=== PATIENT | male | born 1960 | race Caucasian/White ===

== ENCOUNTER 2016-08-20 10:27 | Inpatient (IN) | payer OTHER ==
[~2016-08-20] VITALS: Ht 167.6 cm; Wt 68.0 kg
[2016-08-20] VITALS (17 sets, daily range): BP systolic 101–158; BP diastolic 67–119
--- NOTE | ~2016-08-20 | HC ---
[facility] [place] [address] CONSULTATION Name: XUFRIDA Veronica Room #: 245-P [facility] IN ..#: [id number] Admission: 08/20/16 Attend Phys: Dion Jarquin MD Discharge: Date of : 58 Report #: [id number] THIS REPORT FOR: //name// CC: Geovany Jarquin REASON FOR CONSULTATION: I was asked to evaluate concerning pneumonia and sepsis. HISTORY OF PRESENT ILLNESS: The patient is a 55-year-old who presented to the emergency room today with chest pain, cough, and yellow sputum production for several days. He does have a known history of COPD, lung cancer involving the right lung with diffuse metastasis in his lungs as well as his brain. He has been undergoing radiation and chemotherapy. His right chest Port-A-Cath has been removed. He states because of malfunction. He did have an episode of hemoptysis. Denies any fever or chills. There have been no GI or complaints. Most notably, today he developed chest pain associated with his shortness of breath. ALLERGIES: None known. MEDICATIONS: Albuterol. radiation and chemo is unclear to me at this time. PAST MEDICAL HISTORY: Alcoholism, tobacco use, emphysema, asthma, chronic bronchitis, lung cancer, metastasis to the brain, multiple falls. FAMILY HISTORY: Noncontributory. SOCIAL HISTORY: Smoker of cigarettes, alcohol use. REVIEW OF SYSTEMS: Negative. Has been described above. PHYSICAL EXAMINATION: VITAL SIGNS: Currently afebrile, hemodynamically stable. He has received 4 liters of normal saline prior to reaching the ICU. Now on 150 mL of normal saline drip. His respiratory rate is 19, pulse 113, blood pressure 108/85, MAP of 92. He is on 4 liters of oxygen per nasal cannula. GENERAL: He was alert and cooperative. SKIN: Unremarkable. LYMPH: Unremarkable. HEENT: Unremarkable. NECK: Supple. LUNGS: Expiratory rhonchi throughout. No consolidation. No rub. HEART: Tachycardic and regular. ABDOMEN: Soft, nontender, no hepatosplenomegaly or mass. EXTREMITIES: Unremarkable. [facility] [address] [place] [address] CONSULTATION Name: FRIDA MCNAIR Room #: 245-P [facility] IN [facility].#: [id number] Admission: 08/20/16 Attend Phys: Dion Jarquin MD Discharge: Date of : 58 Report #: [id number] NEUROLOGIC: Nonfocal. LABORATORY STUDIES: Sodium 137, potassium 4.0, bicarbonate 27, creatinine 0.6. ALT 23, alkaline phosphatase 124, bilirubin 0.5, hemoglobin 15.7, white count was 14,000 with 48% segs, 22% bands, platelet count 153,000. Viral respiratory panel is pending. Lactate 1.3. Chest x-ray, right lower lobe infiltrate, which is new. ABGs on 4 liters, pO2 of 110, pCO2 of 56, pH 7.25. Urine legionella and strep pneumo antigen pending. Sputum culture pending. Blood cultures pending. IMPRESSION: A 55-year-old with lung cancer, metastasis to the brain with right lower lobe pneumonia. Would be concerned about both community and nosocomial organisms. Unclear chemotherapy. Definitely is not neutropenic at this time and does show significant left shift. Recommend IV antibiotic therapy, screen for methicillin resistant Staphylococcus aureus in addition to the above testing. Continue with vancomycin, Zosyn and azithromycin. Follow up chest x-ray, continue full support. <ELECTRONICALLY SIGNED> By: Cruzito Denton MD 08/21/16 1653 2340 0829 Cruzito Denton MD /nt
--- NOTE | ~2016-08-20 | HC ---
[facility] [place] [address] CONSULTATION Name: XUFRIDA L Room #: 303-P [facility] IN M..#: [id number] Admission: 08/20/16 Attend Phys: Dion Jarquin MD Discharge: 08/25/16 Date of : 58 Report #: [id number] THIS REPORT FOR: //name// CC: Geovany Jarquin PRIMARY CARE PHYSICIAN: None. REFERRAL PHYSICIAN: Dr. Obrien. REASON FOR REFERRAL: Pneumonia. HISTORY OF PRESENT ILLNESS: The patient is a 55-year-old white male presented to Emergency Room with dyspnea, chest pain, and cough for the past week. Chest x-ray revealed infiltrates. The patient is being admitted for pneumonia. The patient is known to this physician being recently hospitalized in 03/2016. He was found to have a lung cancer at that time. He is currently undergoing chemo and radiation therapy at [facility]. He has been doing fairly well until about a week ago when he started to develop cough and chest pain. Otherwise, denies any productive cough or hemoptysis. 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 His other medical problems include history of alcohol abuse, COPD/asthma, tobacco abuse, and hypertension. ALLERGIES: None to medications. MEDICATIONS ON ADMISSION: Include ProAir 2 puffs p.r.n., dexamethasone, Symbicort, lisinopril, Percocet. FAMILY HISTORY: Noncontributory. SOCIAL HISTORY: The patient has smoked about a pack a day for most of his life. He still continues to smoke episodically. He has history of alcohol abuse drinking 2 to 5 cans a beer per day. He has a significant other, has two children. Most recently, he has been homeless. REVIEW OF SYSTEMS: As mentioned above, otherwise 10-point system review is negative. PHYSICAL EXAMINATION: GENERAL: He is awake, alert, in no apparent distress. VITAL SIGNS: Temperature is 98 degrees Fahrenheit, pulse is 100, respiratory rate is 25, blood pressure is 130/90 mmHg, saturation is 99%. [facility] [address] [place] [address] CONSULTATION Name: XUFRIDA L Room #: 303-P [facility] IN ..#: [id number] Admission: 08/20/16 Attend Phys: Dion Jarquin MD Discharge: 08/25/16 Date of : 58 Report #: [id number] HEENT: Normocephalic, atraumatic. NECK: Supple, without any lymphadenopathy or thyromegaly. CHEST: Breath sounds are moderate bilaterally with mild expiratory wheezes, a few scattered crackles in the right lung field. CARDIOVASCULAR: Normal S1, S2. There are no murmurs or gallop. There is no JVD. There is no carotid bruit. Pulses are 2+/4+ bilaterally. ABDOMEN: Soft, nontender, no organomegaly or masses felt. EXTREMITIES: There is no edema, cyanosis, or clubbing. LABORATORY DATA: Chest x-ray again shows a right upper lobe infiltrates. Electrolytes unremarkable. WBC 14,000, hemoglobin 15.7, platelets are normal. Arterial blood gas pH 7.25, pCO2 of 56, pO2 of 110 on 4 liters of O2. IMPRESSION: 1. Pneumonia, in this patient with metastatic lung cancer with recent chemo and radiation therapy. Usual community-acquired pneumonia is considered, though the patient is also immunocompromised. Opportunistic and atypical infection should also be considered. 2. Acute hypoxic hypercapnic respiratory failure. 3. Severe sepsis. 4. Lung cancer with brain metastases. Currently undergoing chemo and radiation therapy at [facility]. 5. Hypertension. 6. Tobacco abuse. 7. History of alcohol abuse. Agree with broad-spectrum antibiotics to cover for nosocomial infections. DVT and GI prophylaxis will be addressed. Bronchodilators and corticosteroids will be also initiated. Thank you for this consultation. <ELECTRONICALLY SIGNED> By: Shyam Murphy MD 08/26/16 1634 1413 1805 Shyam Murphy MD /nt
--- NOTE | ~2016-08-20 | EKG ---
[address] [place] [employer] [place] [address] ELECTROCARDIOGRAM REPORT Name: FRIDA MCNAIR Room #: 303-P ADM IN M.R.#: [id number] Admission: 08/20/16 Attend Phys: Dion Jarquin MD Discharge: Date of : 58 Report #: [id number] THIS REPORT FOR: //name// [facility] ED Test Date: 2016-08-20 Test Time: 10:34:37 Pat Name: FRIDA MCNAIR Department: Room: 303 Gender: M Airplane Cleaner: Jamshid CAM : 1960 Requested By: Wolfgang Mariano Order Number: [id number] MD: Iván Leyva Measurements Intervals [place] Rate: 137 P: NE: QRS: 81 QRSD: 90 T: -88 QT: 307 QTc: 464 Interpretive Statements Sinus tachycardia Consider left ventricular hypertrophy Nonspecific T abnormalities, lateral leads Baseline wander in lead(s), multiple Compared to ECG 05/17/2016 17:17:05 No significant change was found Electronically Signed On 08-22-2016 7:59:42 LANGUAGE TRANSLATOR by Iván Leyva [email or web address] <ELECTRONICALLY SIGNED> By: Iván Leyva MD, [facility] 08/22/16 0759 1034 1034 Iván Leyva MD, [facility] /EPI
[~2016-08-20 10:27] MED LIST: ALBUTEROL2.5 MG/0.5 INH; ALBUTEROL2.5 MG/32; AUGMENTIN 875875 MG PO; BP MED; DEXAMETHASONE 44 M1 PO; FLEXERIL PO; LOTENSIN40 MG PO; NORCO 5-325 TA1 EACH PO; PRINIVIL20 MG PO; PROVENTIL HFA6.7 G1 INH; SYMBICORT160 MCG/4.; SYMBICORT160 MCG/4. INH; VENTOLIN HFA 1818 GM INH
[2016-08-20 11:07] LABS: HEMATOCRIT 47.2 % (42.0-52.0); HEMOGLOBIN 15.7 gm/dL (14.0-18.0); MCHC 33.2 % (28.0-37.0); MCV 93.2 fL (80.0-100.0); PLATELET COUNT 153 thou/uL (150-400); RBC 5.06 mil/uL (4.50-6.00); RDW 15.1 % (10.5-14.5)
[2016-08-20 11:08] LABS: MANUAL DIFF YES
[2016-08-20 11:14] LABS: ANION GAP 11 mmol/L (7-16); BUN 9 mg/dL (7-18); CALCIUM 9.5 mg/dL (8.5-10.1); CHLORIDE 99 mmol/L (98-107); CO2 27 mmol/L (21-32); CREATININE 0.6 mg/dL (0.6-1.3); GLUCOSE 102 mg/dL (70-99); SODIUM 137 mmol/L (136-145)
[2016-08-20] MEDS ORDERED: PERCOCET 10-321 EACH PO (11:18)
[2016-08-20 11:23] LABS: ALKALINE PHOSPHATASE 124 U/L (46-116); MAGNESIUM 1.8 mg/dL (1.8-2.4); SGOT 34 U/L (15-37); SGPT 23 U/L (30-65); TOTAL BILIRUBIN 0.5 mg/dL (<0.1-1.0); TOTAL PROTEIN 7.8 g/dL (6.4-8.2); TROPONIN-I < 0.04 ng/mL (<0.04-0.07)
[2016-08-20 11:34] LABS: ABSOLUTE NEUTROPHILS 9.8 thou/uL (1.4-8.2); METAMYELOCYTES 4 %; TOTAL CELL COUNT 100
[2016-08-20 17:51] LABS: ABG SAMPLE TYPE ARTERIAL; BE(vivo) -3.9 mmol/L (-2 to +3); HCO3 24.2 mmol/L (22.0-26.0); LACTATE 1.31 mmol/L (0.5-2.0); O2(CT) 21.1 mL/dL (15.0-23.0); O2Hb 95.6 % (92.0-98.0); PO2 110.4 mmHg (80.0-100.0); sO2 97.3 % (92.0-98.0); tCO2 25.9 mmol/L (24.0-30.0)
[2016-08-20 17:52] LABS: STICK SITE R.RADIAL; pH 7.253 (7.360-7.450)
[2016-08-20 19:07] LABS: ABG SAMPLE TYPE VENOUS; BE(vivo) -2.1 mmol/L (-2 to +3); HCO3 26.7 mmol/L (22.0-26.0); O2(CT) 16.4 mL/dL (15.0-23.0); O2Hb VENOUS 79.3 (65.0-85.0); PCO2 VENOUS 63.1 mmHg (41.0-51.0); tCO2 28.6 mmol/L (24.0-30.0)
[2016-08-20 19:08] LABS: ABG COMMENT VBG #1; STICK SITE LINE
[2016-08-20 20:27] LABS: ABG SAMPLE TYPE VENOUS; BE(vivo) -4.4 mmol/L (-2 to +3); HCO3 23.9 mmol/L (22.0-26.0); LACTATE 0.88 mmol/L (0.5-2.0); O2Hb VENOUS 73.3 (65.0-85.0); PCO2 VENOUS 57.5 mmHg (41.0-51.0); PO2 VENOUS 43.2 mmHg (35.0-45.0); sO2 VENOUS 69.9 % (65.0-85.0); tCO2 25.7 mmol/L (24.0-30.0)
[2016-08-20 20:28] LABS: ABG COMMENT VBG #2; STICK SITE LINE
[2016-08-20 21:23] LABS: ABG COMMENT VBG #3; ABG SAMPLE TYPE VENOUS; BE(vivo) -3.1 mmol/L (-2 to +3); HCO3 25.4 mmol/L (22.0-26.0); O2(CT) 15.7 mL/dL (15.0-23.0); O2Hb VENOUS 74.7 (65.0-85.0); PCO2 VENOUS 60.3 mmHg (41.0-51.0); PO2 VENOUS 43.5 mmHg (35.0-45.0); STICK SITE LINE; sO2 VENOUS 70.5 % (65.0-85.0); tCO2 27.3 mmol/L (24.0-30.0)
[2016-08-20 22:33] LABS: ABG COMMENT VBG #4; ABG SAMPLE TYPE VENOUS; BE(vivo) -4.6 mmol/L (-2 to +3); HCO3 24.1 mmol/L (22.0-26.0); LACTATE 0.97 mmol/L (0.5-2.0); O2(CT) 17.3 mL/dL (15.0-23.0); PCO2 VENOUS 59.8 mmHg (41.0-51.0); PO2 VENOUS 50.1 mmHg (35.0-45.0); STICK SITE LINE; sO2 VENOUS 77.4 % (65.0-85.0)
[2016-08-20 23:50] LABS: INR 1.2; PROTIME 12.4 Seconds (9.3-11.4)
[2016-08-20 23:55] LABS: FIBRINOGEN 491.7 mg/dL (210-360)
[2016-08-20 23:59] LABS: ABG SAMPLE TYPE VENOUS; BE(vivo) -4.1 mmol/L (-2 to +3); HCO3 23.5 mmol/L (22.0-26.0); LACTATE 0.85 mmol/L (0.5-2.0); O2(CT) 16.6 mL/dL (15.0-23.0); O2Hb VENOUS 84.3 (65.0-85.0); PCO2 VENOUS 53.2 mmHg (41.0-51.0); PO2 VENOUS 52.3 mmHg (35.0-45.0); sO2 VENOUS 81.6 % (65.0-85.0); tCO2 25.1 mmol/L (24.0-30.0)
[2016-08-21] VITALS (15 sets, daily range): BP systolic 106–156; BP diastolic 75–107
[2016-08-21] LABS: ABG COMMENT VBG #5; STICK SITE LINE
[2016-08-21 00:07] LABS: CALCIUM 8.6 mg/dL (8.5-10.1); CREATININE 0.6 mg/dL (0.6-1.3)
[2016-08-21 03:26] LABS: HEMATOCRIT 42.4 % (42.0-52.0); HEMOGLOBIN 13.9 gm/dL (14.0-18.0); MCH 30.8 pg (26.0-34.0); MCHC 32.8 % (28.0-37.0); RBC 4.51 mil/uL (4.50-6.00); WBC 4.4 thou/uL (4.0-11.0)
[2016-08-21 03:28] LABS: CALCIUM 8.6 mg/dL (8.5-10.1); CREATININE 0.5 mg/dL (0.6-1.3); POTASSIUM 3.9 mmol/L (3.5-5.1)
[2016-08-21 03:35] LABS: INR 1.1; PROTIME 11.9 Seconds (9.3-11.4)
[2016-08-21 03:41] LABS: FIBRINOGEN 607.8 mg/dL (210-360)
[2016-08-21 08:12] LABS: CALCIUM 8.7 mg/dL (8.5-10.1); CREATININE 0.5 mg/dL (0.6-1.3)
[2016-08-22 02:01] LABS: HEMATOCRIT 38.6 % (42.0-52.0); HEMOGLOBIN 12.4 gm/dL (14.0-18.0); MCH 30.3 pg (26.0-34.0); MCHC 32.1 % (28.0-37.0); MCV 94.6 fL (80.0-100.0); RBC 4.08 mil/uL (4.50-6.00); RDW 15.1 % (10.5-14.5); WBC 4.6 thou/uL (4.0-11.0)
[2016-08-22 02:10] LABS: CALCIUM 8.6 mg/dL (8.5-10.1); CREATININE 0.6 mg/dL (0.6-1.3); POTASSIUM 3.4 mmol/L (3.5-5.1)
[2016-08-22 04:34] VITALS: BP 128/91
[2016-08-22 09:03] VITALS: BP 131/86
[2016-08-22 12:00] VITALS: BP 133/83
[2016-08-22 16:00] VITALS: BP 142/91
[2016-08-22 20:05] VITALS: BP 133/89
[2016-08-23 04:39] VITALS: BP 158/108
[2016-08-23 06:49] LABS: HEMATOCRIT 40.1 % (42.0-52.0); HEMOGLOBIN 13.3 gm/dL (14.0-18.0); MCH 30.9 pg (26.0-34.0); MCHC 33.2 % (28.0-37.0); MCV 93.2 fL (80.0-100.0); RBC 4.31 mil/uL (4.50-6.00); RDW 14.9 % (10.5-14.5); WBC 2.9 thou/uL (4.0-11.0)
[2016-08-23 06:54] LABS: CALCIUM 8.8 mg/dL (8.5-10.1); CREATININE 0.5 mg/dL (0.6-1.3); POTASSIUM 3.4 mmol/L (3.5-5.1)
[2016-08-23 08:05] VITALS: BP 166/97
[2016-08-23 12:18] VITALS: BP 151/97
[2016-08-23 16:26] VITALS: BP 146/88
[2016-08-23 20:00] VITALS: BP 161/103
[2016-08-24 03:20] VITALS: BP 163/107
[2016-08-24 07:25] VITALS: BP 162/105
[2016-08-24 08:14] LABS: INFLUENZA B Negative (Negative); METAPNEUMOVIRUS Negative (Negative)
[2016-08-24 08:22] LABS: HEMOGLOBIN 13.3 gm/dL (14.0-18.0); MCH 30.5 pg (26.0-34.0); MCHC 32.5 % (28.0-37.0); MCV 93.6 fL (80.0-100.0); RBC 4.38 mil/uL (4.50-6.00); RDW 14.8 % (10.5-14.5)
[2016-08-24 08:29] LABS: CALCIUM 8.8 mg/dL (8.5-10.1); CREATININE 0.5 mg/dL (0.6-1.3); POTASSIUM 3.3 mmol/L (3.5-5.1)
[2016-08-24 10:00] VITALS: BP 163/106
[2016-08-24 11:50] VITALS: BP 143/92
[2016-08-24 15:45] VITALS: BP 173/98
[2016-08-24 20:39] VITALS: BP 144/93
[2016-08-25 05:01] VITALS: BP 173/99
[2016-08-25 08:47] VITALS: BP 154/107
[2016-08-25 12:33] VITALS: BP 151/106
[2016-08-25] MEDS ORDERED: PREDNISONE 10 M10 MG PO (13:47)
[2016-08-25] MEDS ORDERED: NORVASC10 MG PO (13:47)
[2016-08-25] MEDS ORDERED: CEFUROXIME500 MG PO (13:47)
[2016-08-25] MEDS ORDERED: PROBIOTIC1 EAC1 PO (13:47)
[2016-08-25 13:52] VITALS: BP 151/106
== END 2016-08-25 14:08 | disposition home health service (06) | DRG 871 ==
LOC: ER 10:27 → EROBS 12:10 → 3N 12:10 → ICU 16:50 → 3N 08-21 19:52
PROVIDERS: Emergency Medicine; Hospitalist; Internal Medicine; Internal Medicine Pulmonary Disease; Nurse Practitioner
DX: A41.9 Sepsis, unspecified organism (principal); J96.01 Acute respiratory failure with hypoxia; J18.9 Pneumonia, unspecified organism; J96.02 Acute respiratory failure with hypercapnia; C34.90 Malignant neoplasm of unspecified part of unspecified bronchus or lung; C79.31 Secondary malignant neoplasm of brain; E44.0 Moderate protein-calorie malnutrition; J44.9 Chronic obstructive pulmonary disease, unspecified; R65.20 Severe sepsis without septic shock; J45.909 Unspecified asthma, uncomplicated; I10 Essential (primary) hypertension; F10.10 Alcohol abuse, uncomplicated; D72.819 Decreased white blood cell count, unspecified; F17.210 Nicotine dependence, cigarettes, uncomplicated; R73.01 Impaired fasting glucose; Z68.23 Body mass index [BMI] 23.0-23.9, adult; Z79.899 Other long term (current) drug therapy; Z79.52 Long term (current) use of systemic steroids; Z87.01 Personal history of pneumonia (recurrent)
CPT/HCPCS: 10078; 10096; 27000

== ENCOUNTER 2016-09-02 10:28 | Inpatient (IN) | payer OTHER ==
[~2016-09-02] VITALS: Ht 167.6 cm; Wt 59.2 kg
--- NOTE | ~2016-09-02 | HC ---
[facility] [place] [address] CONSULTATION Name: XUFRIDA Veronica Room #: 209-P ADM IN M.R.#: [id number] Admission: 09/02/16 Attend Phys: Baldo Key MD Discharge: Date of : 58 Report #: [id number] THIS REPORT FOR: //name// CC: Geovany Key MD DATE OF SERVICE: 09/02/2016 REFERRING PROVIDER: Baldo Key MD REASON FOR CONSULTATION: Pneumonia. CHIEF COMPLAINT: Cough and shortness of breath. HISTORY OF PRESENT ILLNESS: Our group was asked to see the patient in consultation while hospitalized at [facility], a pleasant on 55-year-old male with a history of non-small cell lung cancer with metastasis to brain, treated with radiation therapy, has also been on chemotherapy, was recently admitted 1 week ago with lower respiratory infection consistent with pneumonia, was discharged with some confusion about systemic steroids, was started on some antimicrobial therapy. The patient only had p.r.n. albuterol inhaler. He states supplemental oxygen, was seen by his oncologist this morning and was found to have persistent cough productive of white sputum and also continued to be short of breath. Temperature is 100 this morning. He is subsequently admitted for further management. CT scan of the chest, PE protocol was performed which revealed again changes to the right hilar area consistent with prior treatment. Before he had cancer, has had some peribronchial thickening consistent with his underlying obstructive lung disease with acute exacerbation. Currently, resting in bed with significant cough as mentioned. ALLERGIES: None known. PAST MEDICAL HISTORY: 1. Non-small cell lung cancer with brain metastasis status post chemotherapy and radiation therapy to both. 2. Recent hospitalized for healthcare-associated pneumonia. 3. Underlying COPD. 4. History of alcohol abuse. 5. History of steroid-related diabetes mellitus type 2. 6. History of lower extremity weakness and debilitation. OUTPATIENT MEDICATIONS: Include albuterol, amlodipine, cefuroxime, probiotic and prednisone. SOCIAL HISTORY: About a pack a day smoker, significant alcohol consumption [facility] [address] [place] [address] CONSULTATION Name: FRIDA MCNAIR Room #: 209-P [facility]#: [id number] Admission: 09/02/16 Attend Phys: Baldo Key MD Discharge: Date of : 58 Report #: [id number] noted. Lives with significant other. FAMILY HISTORY: Noncontributory. REVIEW OF SYSTEMS: Twelve point review of systems as described in the HPI is normal. PHYSICAL EXAMINATION: VITAL SIGNS: Afebrile, pulse 120 and regular, respiratory rate 24, blood pressure 103/76, oxygen saturation 97% on 2 liters. GENERAL: This is a somewhat diminutive middle-aged male, older than his stated age, no distress. HEENT: Clear oropharynx. No erythema. NECK: Supple, no lymphadenopathy. LUNGS: Diminished, prolonged expiratory phase, diffuse expiratory rhonchi heard throughout. CARDIOVASCULAR: Heart was tachycardic, but regular. No murmurs. ABDOMEN: Soft, nontender, no masses. EXTREMITIES: Warm, 2+ pulses. No significant edema. INTEGUMENT: Revealed multiple areas of ecchymosis over the upper extremities. LABORATORY DATA: Arterial blood gas done on room air revealed pH 7.41, pCO2 of 45, pO2 of 55, bicarbonate 28. White blood cell count 13,000, hemoglobin 16, hematocrit 29, platelet count 270. Sodium 134, potassium 3.8, chloride 95, bicarbonate 32, BUN 10, creatinine 1.0, glucose 132, alkaline phosphatase 150. ProBNP is 362, albumin 3.0. CT scan of the chest as described in HPI. IMPRESSION: 1. Acute exacerbation of chronic obstructive pulmonary disease. 2. Acute on chronic hypoxemic respiratory failure. 3. History of metastatic lung cancer, suspect changes on x-ray consistent with his acute exacerbation, underlying radiation changes associated with treatment. 4. General debilitation. SUGGESTIONS: 1. Continue with coverage for healthcare-associated pneumonia and failure of outpatient therapy. 2. Await sputum culture. 3. Systemic steroid taper. 4. Bronchodilators. 5. We will add guaifenesin. 6. Consider additional airway clearance including a flutter valve. 7. Mobilize, consider physical therapy to assist with mobilization. 8. Likely will need supplemental oxygen and nebulizer at discharge. 9. Additional recommendations to follow. [address] [address] CONSULTATION Name: FRIDA MCNAIR Room #: 209-P [facility] IN ..#: [id number] Admission: 09/02/16 Attend Phys: Baldo Key MD Discharge: Date of : 58 Report #: [id number] Thank you for requesting our suggestions. <ELECTRONICALLY SIGNED> By: Abdias Browne MD 09/06/16 1508 1930 0046 Abdias Browne MD /nt
--- NOTE | ~2016-09-02 | EKG ---
[address] [address] ELECTROCARDIOGRAM REPORT Name: FRIDA MCNAIR Room #: 209-P ADM IN M.R.#: [id number] Admission: 09/02/16 Attend Phys: Baldo Key MD Discharge: Date of : 58 Report #: [id number] THIS REPORT FOR: //name// [facility] ED Test Date: 2016-09-02 Test Time: 10:53:29 Pat Name: FRIDA MCNAIR Department: Room: 209 Gender: M Veterinary Medicine Doctor: MZOOK : 1960 Requested By: Aneta Maldonado Order Number: [id number] MD: Dereck Ruffin Measurements Intervals [place] Rate: 128 P: 85 VA: 137 QRS: 76 QRSD: 81 T: 29 QT: 300 QTc: 438 Interpretive Statements Sinus tachycardia LAE, consider biatrial enlargement Probable left ventricular hypertrophy Compared to ECG 08/20/2016 10:34:37 T-wave abnormality no longer present Electronically Signed On 09-02-2016 14:14:46 SENIOR TECHNICAL ARCHITECT by Dereck Ruffin [email or web address] <ELECTRONICALLY SIGNED> By: Dereck Ruffin MD 09/02/16 1414 1053 1053 Dereck Ruffin MD /BREE
--- NOTE | ~2016-09-02 | EKG ---
[address] [address] ELECTROCARDIOGRAM REPORT Name: FRIDA MCNAIR Room #: 209-P ADM IN M.R.#: [id number] Admission: 09/02/16 Attend Phys: Baldo Key MD Discharge: Date of : 58 Report #: [id number] THIS REPORT FOR: //name// [facility] Test Date: 2016-09-05 Test Time: 07:30:41 Pat Name: FRIDA MCNAIR Department: Room: 209 P Gender: M Poultry Farm Manager: lo : 1960 Requested By: Abdias Browne Order Number: [id number] MD: Iván Leyva Measurements Intervals [place] Rate: 109 P: [place]: QRS: 73 QRSD: 82 T: 51 QT: 337 QTc: 454 Interpretive Statements Sinus tachycardia Otherwise no significant abnormality No previous ECGs available for comparison Electronically Signed On 09-05-2016 8:28:17 EQUIPMENT VALIDATION ENGINEER by Iván Leyva [email or web address] <ELECTRONICALLY SIGNED> By: Iván Leyva MD, [facility] 09/05/16 0828 0730 0730 Iván Leyva MD, [facility] /EPI
[~2016-09-02 10:28] MED LIST changes: +CEFUROXIME500 MG PO; +NORVASC10 MG PO; +PERCOCET 10-321 EACH PO; +PREDNISONE 10 M10 MG PO; +PROBIOTIC1 EAC1 PO
[2016-09-02 10:29] VITALS: BP 145/70
[2016-09-02 11:01] LABS: HEMATOCRIT 49.2 % (42.0-52.0); HEMOGLOBIN 16.3 gm/dL (14.0-18.0); MCH 30.6 pg (26.0-34.0); MCV 92.6 fL (80.0-100.0); PLATELET COUNT 270 thou/uL (150-400); RBC 5.32 mil/uL (4.50-6.00)
[2016-09-02 11:04] LABS: MANUAL DIFF YES
[2016-09-02 11:04] LABS: ABG SAMPLE TYPE ARTERIAL; BE(vivo) 2.4 mmol/L (-2 to +3); HCO3 27.7 mmol/L (22.0-26.0); LACTATE 1.02 mmol/L (0.5-2.0); O2(CT) 19.7 mL/dL (15.0-23.0); O2Hb 86.5 % (92.0-98.0); PCO2 44.9 mmHg (35.0-45.0); pH 7.408 (7.360-7.450); sO2 88.6 % (92.0-98.0); tCO2 29.1 mmol/L (24.0-30.0)
[2016-09-02 11:05] LABS: PO2 54.8 mmHg (80.0-100.0)
[2016-09-02 11:06] LABS: STICK SITE R.RADIAL
[2016-09-02 11:13] LABS: APTT 28.7 Seconds (24.5-32.8); INR 1.2
[2016-09-02 11:15] LABS: ANION GAP 7 mmol/L (7-16); BUN 10 mg/dL (7-18); CALCIUM 9.1 mg/dL (8.5-10.1); CHLORIDE 95 mmol/L (98-107); CO2 32 mmol/L (21-32); GLUCOSE 132 mg/dL (70-99); POTASSIUM 3.8 mmol/L (3.5-5.1); SODIUM 134 mmol/L (136-145)
[2016-09-02 11:30] LABS: ALKALINE PHOSPHATASE 150 U/L (46-116); NT-PRO BRAIN NAT PEPTIDE 362 pg/mL (<300); SGOT 32 U/L (15-37); SGPT 44 U/L (30-65); TOTAL BILIRUBIN 0.4 mg/dL (<0.1-1.0); TOTAL PROTEIN 8.2 g/dL (6.4-8.2); TROPONIN-I < 0.04 ng/mL (<0.04-0.07)
[2016-09-02 11:47] LABS: ABSOLUTE NEUTROPHILS 11.2 thou/uL (1.4-8.2); TOTAL CELL COUNT 100
[2016-09-02 14:04] VITALS: BP 116/86
[2016-09-02 14:15] VITALS: BP 119/96
[2016-09-02 15:50] VITALS: BP 103/76
[2016-09-02 19:38] LABS: URINE BILIRUBIN NEGATIVE (Negative); URINE BLOOD NEGATIVE (Negative); URINE COLOR YELLOW; URINE GLUCOSE-RANDOM* NEGATIVE (Negative); URINE KETONES NEGATIVE (Negative); URINE NITRITE NEGATIVE (Negative); URINE PROTEIN (DIPSTICK) NEGATIVE (Negative); URINE UROBILINOGEN 0.2 E.U./dl (0.2-1.0)
[2016-09-02 20:17] VITALS: BP 131/86
[2016-09-02 23:28] VITALS: BP 120/88
[2016-09-03 04:10] VITALS: BP 120/85
[2016-09-03 16:50] VITALS: BP 135/95
[2016-09-03 20:35] VITALS: BP 134/81
[2016-09-04] VITALS (7 sets, daily range): BP systolic 124–168; BP diastolic 68–105
[2016-09-04 03:44] LABS: HEMATOCRIT 40.9 % (42.0-52.0); MCH 30.1 pg (26.0-34.0); MCHC 32.2 % (28.0-37.0); MCV 93.4 fL (80.0-100.0); PLATELET COUNT 215 thou/uL (150-400); RBC 4.38 mil/uL (4.50-6.00); RDW 15.5 % (10.5-14.5); WBC 11.1 thou/uL (4.0-11.0)
[2016-09-04 04:16] LABS: HEMOGLOBIN 13.2 gm/dL (14.0-18.0)
[2016-09-04 04:17] LABS: MANUAL DIFF YES
[2016-09-04 05:49] LABS: ABSOLUTE NEUTROPHILS 10.2 thou/uL (1.4-8.2); PLATELET ESTIMATE NORMAL; TOTAL CELL COUNT 100
[2016-09-05 00:44] VITALS: BP 163/85
[2016-09-05 03:42] LABS: ABG SAMPLE TYPE ARTERIAL; BE(vivo) 7.4 mmol/L (-2 to +3); HCO3 35.2 mmol/L (22.0-26.0); LACTATE 1.54 mmol/L (0.5-2.0); O2(CT) 20.9 mL/dL (15.0-23.0); O2Hb 95.7 % (92.0-98.0); PCO2 62.8 mmHg (35.0-45.0); PO2 84.6 mmHg (80.0-100.0); STICK SITE R.RADIAL; pH 7.367 (7.360-7.450); sO2 95.8 % (92.0-98.0); tCO2 37.2 mmol/L (24.0-30.0)
[2016-09-05 03:45] VITALS: BP 161/95
[2016-09-05 04:14] LABS: HEMATOCRIT 44.8 % (42.0-52.0); HEMOGLOBIN 14.4 gm/dL (14.0-18.0); MCH 30.1 pg (26.0-34.0); MCHC 32.2 % (28.0-37.0); MCV 93.4 fL (80.0-100.0); RBC 4.79 mil/uL (4.50-6.00); RDW 15.6 % (10.5-14.5); WBC 12.8 thou/uL (4.0-11.0)
[2016-09-05 04:21] LABS: CALCIUM 9.4 mg/dL (8.5-10.1); CREATININE 0.6 mg/dL (0.6-1.3); POTASSIUM 3.9 mmol/L (3.5-5.1)
[2016-09-05 07:50] VITALS: BP 155/108
[2016-09-05 11:20] VITALS: BP 144/103
[2016-09-05 16:40] VITALS: BP 134/99
[2016-09-05 20:21] VITALS: BP 131/94
[2016-09-06 04:06] VITALS: BP 128/89
[2016-09-06 04:17] LABS: HEMATOCRIT 42.6 % (42.0-52.0); HEMOGLOBIN 13.7 gm/dL (14.0-18.0); MCHC 32.2 % (28.0-37.0); MCV 93.2 fL (80.0-100.0); RBC 4.57 mil/uL (4.50-6.00); RDW 15.5 % (10.5-14.5); WBC 5.2 thou/uL (4.0-11.0)
[2016-09-06 04:27] LABS: CALCIUM 8.9 mg/dL (8.5-10.1); CREATININE 0.6 mg/dL (0.6-1.3); POTASSIUM 3.3 mmol/L (3.5-5.1)
[2016-09-06 08:00] VITALS: BP 156/107
[2016-09-06 12:07] VITALS: BP 128/105
[2016-09-06 16:00] VITALS: BP 139/103
[2016-09-06 16:05] VITALS: BP 113/83
[2016-09-07 04:22] VITALS: BP 134/104
[2016-09-07 08:23] VITALS: BP 149/107
[2016-09-07 13:15] VITALS: BP 130/106
[2016-09-07 17:10] VITALS: BP 118/84
[2016-09-07 19:49] VITALS: BP 125/94
[2016-09-07 22:07] LABS: INFLUENZA B Negative (Negative); METAPNEUMOVIRUS Negative (Negative)
[2016-09-08 05:08] VITALS: BP 119/89
[2016-09-08 08:00] VITALS: BP 111/80
[2016-09-08] MEDS ORDERED: MIRALAX17 GM PO (10:43)
[2016-09-08] MEDS ORDERED: NICOTINE TRANSD21 M1 TRANSDERM (10:43)
[2016-09-08] MEDS ORDERED: LEVAQUIN 500 M500 M1 PO (10:43)
[2016-09-08] MEDS ORDERED: COLACE 100 MG100 MG PO (10:43)
[2016-09-08 12:30] VITALS: BP 112/84
[2016-09-08] MEDS ORDERED: SYMBICORT160 MCG/4. INH (12:31)
[2016-09-08] MEDS ORDERED: PROVENTIL HFA6.7 G1 INH (12:31)
[2016-09-08 15:58] VITALS: BP 112/85
[2016-09-08 16:26] VITALS: BP 112/85
== END 2016-09-08 17:29 | disposition home or self-care (01) | DRG 190 ==
LOC: ER 10:28 → 2N 12:27 → EROBS 12:27 → 2N 13:57
PROVIDERS: Family Medicine; Internal Medicine Pulmonary Disease; Nurse Practitioner; Physician Assistant
PROC: 5A09357 Assistance with Respiratory Ventilation, Less than 24 Consecutive Hours, Continuous Positive Airway Pressure (ICD-10-PCS; principal; 2016-09-05)
DX: J44.0 Chronic obstructive pulmonary disease with (acute) lower respiratory infection (principal); J96.01 Acute respiratory failure with hypoxia; J18.9 Pneumonia, unspecified organism; J09.X1 Influenza due to identified novel influenza A virus with pneumonia; J18.8 Other pneumonia, unspecified organism; E44.1 Mild protein-calorie malnutrition; C34.90 Malignant neoplasm of unspecified part of unspecified bronchus or lung; C79.31 Secondary malignant neoplasm of brain; J44.1 Chronic obstructive pulmonary disease with (acute) exacerbation; F40.240 Claustrophobia; F17.210 Nicotine dependence, cigarettes, uncomplicated; Z68.22 Body mass index [BMI] 22.0-22.9, adult; Z79.2 Long term (current) use of antibiotics; Z99.81 Dependence on supplemental oxygen; Z87.01 Personal history of pneumonia (recurrent); Z79.52 Long term (current) use of systemic steroids
CPT/HCPCS: 10081

== ENCOUNTER 2016-12-30 12:46 | Inpatient (IN) | payer OTHER ==
[~2016-12-30] VITALS: Ht 167.6 cm; Wt 68.9 kg
--- NOTE | ~2016-12-30 | HC ---
[facility] [place] [place] [address] CONSULTATION Name: XUFRIDA Veronica Room #: 240-[facility] IN M.R.#: [id number] Admission: 12/30/16 Attend Phys: Gabriele Quezada DO Discharge: Date of : 58 Report #: [id number] THIS REPORT FOR: //name// CC: Geovany Jade MD DATE OF SERVICE: 12/30/2016 REFERRING PROVIDER: Dr. Bisi Pierce and Dr. Gabriele Quezada. REASON FOR CONSULTATION: Recurrent pneumonia. CHIEF COMPLAINT: Chest pain and shortness of breath. HISTORY OF PRESENT ILLNESS: Our group was asked to see the patient in consultation while hospitalized at [facility]. A pleasant but unfortunate 56-year-old male with a known history of metastatic lung cancer with brain metastases, has been on a second line therapy with Opdivo by records from [facility]. He has had recurrent problems with lower respiratory infections and underlying COPD. Initially was found to have a right hilar mass nearly one year ago and workup revealed non-small cell lung cancer. He had had radiation therapy to that area and has had some persistent abnormalities since that time, notes recently coming off antibiotic therapy with Augmentin, but in the last two weeks he has had some increasing shortness of breath, cough and some chest pain across the center of the chest. He has also noted some fever at home up to 101, no chills or rigors, appetite has been diminished, was seen for chemotherapy today, but then requested to go to the Emergency Department due to his chest pain for further evaluation. CT scan of the chest in the Emergency Department revealed no evidence of pulmonary embolism. There are some fine nodular infiltrates noted in the bases of the chest as well as a right middle lobe densely consistent with his prior radiation therapy and/or pneumonitis, not substantially changed from prior imaging. ALLERGIES: None known. PAST MEDICAL HISTORY: 1. Non small cell lung cancer, brain metastasis. 2. COPD. 3. History of recurrent pneumonia, this is likely secondary to the above. 4. History of alcohol abuse. 5. History of tobacco abuse. 6. History of steroid-related diabetes mellitus type 2. 7. History of general debilitation, lower extremity weakness and unsteady gait. 8. History of radiation therapy for his non-small cell lung cancer as well as [facility] [address] [place] [address] CONSULTATION Name: FRIDA MCNAIR Veronica Room #: 240-P [facility] IN ..#: [id number] Admission: 12/30/16 Attend Phys: Gabriele Quezada DO Discharge: Date of : 58 Report #: [id number] ongoing chemotherapy. OUTPATIENT MEDICATIONS: Include prednisone 10 mg daily, amlodipine 10 mg daily, nicotine patch, Colace, albuterol nebulizer and Symbicort. SOCIAL HISTORY: Active smoker, currently lives in a fifth wheel trailer with his significant other, was looking for other arrangements as this seems to be inadequate. FAMILY HISTORY: Negative for any significant pulmonary disease. REVIEW OF SYSTEMS: CONSTITUTIONAL: Notes fever, no chills or rigors. ENT: No upper respiratory congestion, rhinorrhea or dysphagia. CARDIOVASCULAR: Chest pain as described in HPI. No palpitations. GASTROINTESTINAL: Some nausea earlier today with some emesis. Denies any abdominal pain, diarrhea or constipation. GENITOURINARY: No dysuria, no frequency. INTEGUMENT: Denies any new rash. MUSCULOSKELETAL: Generalized weakness; some unsteady gait NEUROLOGIC: Some peripheral neuropathy symptoms. PHYSICAL EXAMINATION: VITAL SIGNS: Temperature 99.3, pulse 100 and regular, respiratory rate 18, blood pressure 132/83, oxygen saturation 100%. GENERAL: This is a thin, middle-aged male, does not appear in any distress. HEENT: Clear oropharynx. No thrush. NECK: Supple, no lymphadenopathy. LUNGS: Diffuse expiratory wheezes noted throughout diminished on the right base. CARDIOVASCULAR: Heart was regular. No murmurs noted. ABDOMEN: Soft, nontender, no masses, no hepatosplenomegaly. EXTREMITIES: Without edema. INTEGUMENT: There are multiple areas of skin abrasions over the upper and lower extremities consistent with frequent falls. LABORATORY DATA: Sodium 136, potassium 4.4, chloride 100, bicarbonate 28, BUN 24, creatinine 1.0, glucose 137. ProBNP is 318, white blood cell count 19,000, hemoglobin 11, hematocrit , platelet count 249. No arterial blood gas available. CT scan is as described in HPI. IMPRESSION: Recurrent lower respiratory infection. CT findings do suggest some basilar bronchiectasis and some nodular change. This may be consistent with bronchiectasis with acute exacerbation. Given the recurrent symptoms, may have an atypical microbacterium, would also be concerned about recurrent problems in his right middle lobe due to some possible obstruction there, other findings [facility] [address] [place] [address] CONSULTATION Name: FRIDA MCNAIR Room #: [facility]-P ADM IN M.R.#: [id number] Admission: 12/30/16 Attend Phys: Gabriele Quezada DO Discharge: Date of : 58 Report #: [id number] most consistent with radiation change. Suggest checking the sputum for AFB and routine cultures. Continue with Zosyn and antibiotics and vancomycin, systemic steroid taper, bronchodilators, add flutter valve for airway clearance, additional recommendations to follow. Would consider discontinuing inhaled steroids as this may be contributing to some of his problems with lower respiratory infections, may require bronchoscopy for further cultures if the above are negative. <ELECTRONICALLY SIGNED> By: Abdias Browne MD 01/02/17 1453 1840 0135 Abdias Browne MD /nt
--- NOTE | ~2016-12-30 | P ---
[facility] [place] [address] PROCEDURE REPORT Name: XUFRIDA Veronica Room #: 240-P [facility] IN ..#: [id number] Admission: 12/30/16 Attend Phys: Gabriele Quezada DO Discharge: Date of : 58 Report #: [id number] THIS REPORT FOR: //name// CC: Geovany Quezada DATE OF SERVICE: 12/31/2016 PROCEDURE: An EGD with injection and cautery. INDICATION: The patient is a 56-year-old male with history of metastatic lung cancer who developed acute onset of nausea and hematemesis, dropped his hemoglobin from 10.5 to 4.8 and had an episode of melena. At that time, he was also tachycardic and hypotensive and was transferred to the intensive care unit and started on PPI infusion. ANESTHESIA: Monitored anesthesia care, propofol for sedation with help of Dr. Marcos. DESCRIPTION OF PROCEDURE: The patient was placed in the left lateral decubitus position and the adult [employer] upper endoscope was introduced into the mouth, into the esophagus, into the stomach, into the second portion of the duodenum. Duodenum appeared normal. There were 2, 1 large antral stomach ulcer, 1 was small about 3 mm and linear, the other was large and cratered with a visible vessel. There was no blood noted throughout the stomach or the duodenum, but there was a visible vessel in the bed of the ulcer. This was injected with epinephrine, 3 mL and cauterized using BICAP cautery. There was no bleeding at the end of the procedure. The stomach was normal in retroflexion and the patient had normal esophagus. RECOMMENDATIONS: To continue the PPI infusion for 72 hours. Continue to monitor hemoglobin daily. Keep n.p.o. for today and if the hemoglobin remained stable without any further bleeding, the diet can be advanced at that time. Avoid NSAID medication. The patient takes significant amount of Naprosyn at home and send stool H. pylori antigen and treat if positive. We will follow along with you. <ELECTRONICALLY SIGNED> By: Dung Tarango MD 01/01/17 0908 1344 1853 Dung Tarango MD /nt
--- NOTE | ~2016-12-30 | EKG ---
[address] [place] [address] ELECTROCARDIOGRAM REPORT Name: FRIDA MCNAIR Room #: 240-P ADM IN M.R.#: [id number] Admission: 12/30/16 Attend Phys: Gabriele Quezada DO Discharge: Date of : 58 Report #: [id number] THIS REPORT FOR: //name// [facility] ED Test Date: 2016-12-30 Test Time: 13:10:15 Pat Name: FRIDA MCNAIR Department: Room: 240 Gender: M Photogrammetric Surveyor: LEILA : 1960 Requested By: Crow Meza Order Number: [id number] MD: Iván Leyva Measurements Intervals [place] Rate: 135 P: 79 MO: 67 QRS: 75 QRSD: 79 T: 228 QT: 284 QTc: 426 Interpretive Statements Sinus tachycardia Probable LVH with secondary repol abnrm Compared to ECG 09/05/2016 07:30:41 No significant changes Electronically Signed On 12-31-2016 11:28:19 CDT by Iván Leyva [email or web address] <ELECTRONICALLY SIGNED> By: Iván Leyva MD, [facility] 12/31/16 1128 1310 1310 Iván Leyva MD, [facility] /EPI
[~2016-12-30 12:46] MED LIST changes: +COLACE 100 MG100 MG PO; +LEVAQUIN 500 M500 M1 PO; +MIRALAX17 GM PO; +NICOTINE TRANSD21 M1 TRANSDERM
[2016-12-30 12:51] VITALS: BP 130/68
[2016-12-30 13:31] LABS: HEMATOCRIT 30.5 % (42.0-52.0); HEMOGLOBIN 10.5 gm/dL (14.0-18.0); MCHC 34.3 g/dL (28.0-37.0); MCV 93.4 fL (80.0-100.0); PLATELET COUNT 249 thou/uL (150-400); RBC 3.27 mil/uL (4.50-6.00); RDW 15.6 % (10.5-14.5); WBC 18.9 thou/uL (4.0-11.0)
[2016-12-30 13:33] LABS: MANUAL DIFF YES
[2016-12-30 13:37] LABS: ANION GAP 8 mmol/L (7-16); BUN 24 mg/dL (7-18); CHLORIDE 100 mmol/L (98-107); CO2 28 mmol/L (21-32); GLUCOSE 137 mg/dL (74-106); POTASSIUM 4.4 mmol/L (3.5-5.1); SODIUM 136 mmol/L (136-145)
[2016-12-30 13:50] LABS: NT-PRO BRAIN NAT PEPTIDE 318 pg/mL (<300); TROPONIN-I < 0.04 ng/mL (<0.04-0.07)
[2016-12-30 14:14] LABS: ABSOLUTE NEUTROPHILS 16.6 thou/uL (1.4-8.2); ANISOCYTOSIS 1+; NUCLEATED RBCS 1 /100WBC; POLYCHROMASIA OCCASIONAL; TOTAL CELL COUNT 100
[2016-12-30 16:19] VITALS: BP 112/59
[2016-12-30 17:15] VITALS: BP 133/83
[2016-12-30 17:25] VITALS: BP 132/83
[2016-12-30 20:00] VITALS: BP 106/63
[2016-12-31] VITALS (60 sets, daily range): BP systolic 64–146; BP diastolic 45–101
[2016-12-31 05:05] LABS: MCH 31.2 pg (26.0-34.0); PLATELET COUNT 229 thou/uL (150-400); RBC 1.55 mil/uL (4.50-6.00); RDW 15.9 % (10.5-14.5); WBC 19.1 thou/uL (4.0-11.0)
[2016-12-31 05:07] LABS: MCV 100.8 fL (80.0-100.0)
[2016-12-31 05:09] LABS: HEMATOCRIT 15.6 % (42.0-52.0); HEMOGLOBIN 4.8 gm/dL (14.0-18.0)
[2016-12-31 05:10] LABS: MANUAL DIFF YES
[2016-12-31 05:13] LABS: CALCIUM 7.5 mg/dL (8.5-10.1); CREATININE 1.5 mg/dL (0.7-1.3); POTASSIUM 4.5 mmol/L (3.5-5.1)
[2016-12-31 05:40] LABS: INR 1.4; PROTIME 14.7 Seconds (9.3-11.4)
[2016-12-31 05:45] LABS: ALBUMIN 1.7 g/dL (3.4-5.0); DIRECT BILIRUBIN 0.1 mg/dL (<0.1-0.3); TOTAL BILIRUBIN 0.4 mg/dL (<0.1-1.0); TOTAL PROTEIN 4.5 g/dL (6.4-8.2)
[2016-12-31 08:42] LABS: ABSOLUTE NEUTROPHILS 17.8 thou/uL (1.4-8.2); TOTAL CELL COUNT 100
[2016-12-31 08:43] LABS: MACROCYTES 1+
[2016-12-31 08:44] LABS: ANISOCYTOSIS 1+; POLYCHROMASIA SLIGHT
[2016-12-31 13:51] LABS: HEMATOCRIT 28.2 % (42.0-52.0)
[2016-12-31 13:56] LABS: HEMOGLOBIN 9.7 gm/dL (14.0-18.0)
[2016-12-31 14:02] LABS: CALCIUM 7.5 mg/dL (8.5-10.1); POTASSIUM 4.3 mmol/L (3.5-5.1)
[2016-12-31 14:07] LABS: ALBUMIN 2.1 g/dL (3.4-5.0); MAGNESIUM 1.7 mg/dL (1.8-2.4); PHOSPHORUS 3.6 mg/dL (2.5-4.9); TOTAL BILIRUBIN 0.7 mg/dL (<0.1-1.0); TOTAL PROTEIN 4.9 g/dL (6.4-8.2)
[2016-12-31 14:34] LABS: FOLIC ACID 12.3 ng/mL (8.6-58.9)
[2016-12-31 21:21] LABS: AMP/METHAMP Negative (Negative); BARBITURATES Negative (Negative); BENZODIAZEPINES Negative (Negative); COCAINE Negative (Negative); METHADONE Negative (Negative); OPIATES Negative (Negative); PCP Negative (Negative); THC Negative (Negative)
[2016-12-31 23:29] LABS: URINE BILIRUBIN NEGATIVE (Negative); URINE BLOOD NEGATIVE (Negative); URINE COLOR YELLOW; URINE GLUCOSE-RANDOM* NEGATIVE (Negative); URINE KETONES NEGATIVE (Negative); URINE LEUKOCYTES-REFLEX NEGATIVE (Negative); URINE PROTEIN (DIPSTICK) NEGATIVE (Negative); URINE UROBILINOGEN 0.2 E.U./dl (0.2-1.0)
[2017-01-01] VITALS (24 sets, daily range): BP systolic 94–143; BP diastolic 64–123
[2017-01-01 05:50] LABS: HEMOGLOBIN 8.6 gm/dL (14.0-18.0); MCH 30.8 pg (26.0-34.0); MCHC 34.3 g/dL (28.0-37.0); PLATELET COUNT 158 thou/uL (150-400); RDW 15.3 % (10.5-14.5); WBC 13.8 thou/uL (4.0-11.0)
[2017-01-01 05:53] LABS: MANUAL DIFF YES; MCV 89.6 fL (80.0-100.0)
[2017-01-01 06:06] LABS: FREE T4 0.92 ng/dL (0.82-1.77)
[2017-01-01 06:07] LABS: CALCIUM 7.8 mg/dL (8.5-10.1); CREATININE 0.9 mg/dL (0.7-1.3); POTASSIUM 3.7 mmol/L (3.5-5.1)
[2017-01-01 09:40] LABS: ABSOLUTE NEUTROPHILS 12.4 thou/uL (1.4-8.2); ANISOCYTOSIS SLIGHT; POIKILOCYTOSIS SLIGHT; POLYCHROMASIA SLIGHT; TOTAL CELL COUNT 100
[2017-01-01 10:43] LABS: MAGNESIUM 1.8 mg/dL (1.8-2.4); PHOSPHORUS 2.2 mg/dL (2.5-4.9)
[2017-01-02] VITALS (19 sets, daily range): BP systolic 86–155; BP diastolic 64–102
[2017-01-02 04:12] LABS: HEMATOCRIT 25.4 % (42.0-52.0); HEMOGLOBIN 8.6 gm/dL (14.0-18.0); MCH 30.6 pg (26.0-34.0); MCHC 33.7 g/dL (28.0-37.0); MCV 90.9 fL (80.0-100.0); PLATELET COUNT 188 thou/uL (150-400); RDW 15.8 % (10.5-14.5); WBC 11.7 thou/uL (4.0-11.0)
[2017-01-02 04:13] LABS: MANUAL DIFF YES
[2017-01-02 04:28] LABS: CALCIUM 7.9 mg/dL (8.5-10.1); CREATININE 0.7 mg/dL (0.7-1.3); MAGNESIUM 2.1 mg/dL (1.8-2.4); PHOSPHORUS 1.8 mg/dL (2.5-4.9); POTASSIUM 3.6 mmol/L (3.5-5.1)
[2017-01-02 04:56] LABS: ABSOLUTE NEUTROPHILS 10.6 thou/uL (1.4-8.2); TOTAL CELL COUNT 100
[2017-01-03] VITALS (12 sets, daily range): BP systolic 111–136; BP diastolic 79–94
[2017-01-03 05:27] LABS: HEMOGLOBIN 9.2 gm/dL (14.0-18.0); MCHC 34.2 g/dL (28.0-37.0); MCV 90.8 fL (80.0-100.0); PLATELET COUNT 234 thou/uL (150-400); RBC 2.97 mil/uL (4.50-6.00); RDW 15.7 % (10.5-14.5)
[2017-01-03 05:28] LABS: MANUAL DIFF YES
[2017-01-03 05:47] LABS: CALCIUM 7.9 mg/dL (8.5-10.1); CREATININE 0.7 mg/dL (0.7-1.3)
[2017-01-03 07:22] LABS: ANISOCYTOSIS 1+; MYELOCYTES 1 %; POLYCHROMASIA OCCASIONAL; TOTAL CELL COUNT 100
[2017-01-04 03:44] LABS: CALCIUM 7.9 mg/dL (8.5-10.1); CREATININE 0.8 mg/dL (0.7-1.3); POTASSIUM 3.6 mmol/L (3.5-5.1)
[2017-01-04 04:16] VITALS: BP 129/89
[2017-01-04 04:18] LABS: HEMATOCRIT 27.7 % (42.0-52.0); HEMOGLOBIN 9.6 gm/dL (14.0-18.0); MCH 31.2 pg (26.0-34.0); MCHC 34.7 g/dL (28.0-37.0); MCV 89.9 fL (80.0-100.0); PLATELET COUNT 264 thou/uL (150-400); RBC 3.09 mil/uL (4.50-6.00); RDW 15.9 % (10.5-14.5)
[2017-01-04 04:22] LABS: MANUAL DIFF YES
[2017-01-04 04:59] LABS: ABSOLUTE NEUTROPHILS 10.8 thou/uL (1.4-8.2); ANISOCYTOSIS 1+; MACROCYTES 1+; POLYCHROMASIA OCCASIONAL; TOTAL CELL COUNT 100
[2017-01-04 05:10] LABS: INFLUENZA B Negative (Negative); METAPNEUMOVIRUS Negative (Negative)
[2017-01-04 07:49] VITALS: BP 137/99
[2017-01-04 16:09] VITALS: BP 144/97
[2017-01-04 20:16] VITALS: BP 127/87
[2017-01-04 23:07] VITALS: BP 127/94
[2017-01-05] VITALS (7 sets, daily range): BP systolic 121–129; BP diastolic 85–90
[2017-01-05 03:38] LABS: HEMATOCRIT 28.7 % (42.0-52.0); HEMOGLOBIN 9.7 gm/dL (14.0-18.0); MCH 30.8 pg (26.0-34.0); MCHC 33.9 g/dL (28.0-37.0); RBC 3.16 mil/uL (4.50-6.00); RDW 15.8 % (10.5-14.5); WBC 14.7 thou/uL (4.0-11.0)
[2017-01-05 03:53] LABS: CREATININE 0.8 mg/dL (0.7-1.3); POTASSIUM 3.5 mmol/L (3.5-5.1)
[2017-01-05] MEDS ORDERED: PERCOCET 10-321 EACH PO (06:39)
[2017-01-05] MEDS ORDERED: AUGMENTIN 875-1 EACH PO (06:39)
[2017-01-05] MEDS ORDERED: PROTONIX40 M1 PO (12:15)
[2017-01-05] MEDS ORDERED: NEXIUM40 MG PO (12:24)
== END 2017-01-05 13:40 | disposition home or self-care (01) | DRG 377 ==
LOC: ER 12:46 → EROBS 15:27 → ICU 15:27 → 4E 16:19 → ICU 12-31 05:22 → 2N 01-03 16:23
PROVIDERS: Emergency Medicine; Family Medicine; Internal Medicine Gastroenterology; Internal Medicine Geriatric Medicine; Internal Medicine Pulmonary Disease; Nurse Practitioner Family
PROC: 3E0G8GC Introduction of Other Therapeutic Substance into Upper GI, Via Natural or Artificial Opening Endoscopic (ICD-10-PCS; principal; 2016-12-31)
PROC: 0D568ZZ Destruction of Stomach, Via Natural or Artificial Opening Endoscopic (ICD-10-PCS; 2016-12-31)
PROC: 30233N1 Transfusion of Nonautologous Red Blood Cells into Peripheral Vein, Percutaneous Approach (ICD-10-PCS; 2016-12-31)
DX: K25.0 Acute gastric ulcer with hemorrhage (principal); J18.9 Pneumonia, unspecified organism; J44.0 Chronic obstructive pulmonary disease with (acute) lower respiratory infection; J44.1 Chronic obstructive pulmonary disease with (acute) exacerbation; C34.90 Malignant neoplasm of unspecified part of unspecified bronchus or lung; C71.9 Malignant neoplasm of brain, unspecified; F10.239 Alcohol dependence with withdrawal, unspecified; E86.0 Dehydration; F10.229 Alcohol dependence with intoxication, unspecified; K92.0 Hematemesis; K92.1 Melena; I11.0 Hypertensive heart disease with heart failure; I50.9 Heart failure, unspecified; J45.909 Unspecified asthma, uncomplicated; E11.9 Type 2 diabetes mellitus without complications; F17.210 Nicotine dependence, cigarettes, uncomplicated; R00.0 Tachycardia, unspecified; D64.9 Anemia, unspecified; I95.9 Hypotension, unspecified; R41.0 Disorientation, unspecified; Y90.0 Blood alcohol level of less than 20 mg/100 ml; Y95 Nosocomial condition; K59.00 Constipation, unspecified; Z85.118 Personal history of other malignant neoplasm of bronchus and lung; Z88.8 Allergy status to other drugs, medicaments and biological substances; Z79.899 Other long term (current) drug therapy; Z87.01 Personal history of pneumonia (recurrent)
CPT/HCPCS: 10078; 10081; 10183; 62110; 62900; 85076

== ENCOUNTER 2017-01-13 16:12 | Inpatient (IN) | payer OTHER ==
[~2017-01-13] VITALS: Ht 167.6 cm; Wt 61.2 kg
--- NOTE | ~2017-01-13 | HC ---
[facility] [place] [address] CONSULTATION Name: FRIDA MCNAIR Room #: 426-P ADM IN M.R.#: [id number] Admission: 01/13/17 Attend Phys: Gabriele Quezada DO Discharge: Date of : 58 Report #: [id number] THIS REPORT FOR: //name// CC: FREDDIE physician/PCP Suzette Pierce REASON FOR CONSULTATION: I was asked to evaluate concerning bilateral lower extremity cellulitis. HISTORY OF PRESENT ILLNESS: The patient is a 56-year-old with lung cancer, who completed his course of chemotherapy in October of this year. Over the last week he had increased swelling, mostly in the left leg along with development of erythema and increased pain. No fever, chills or sweats. REVIEW OF SYSTEMS: Notes minimal cough. No chest pain, no GI or complaints. ALLERGIES: HYDRALAZINE. MEDICATIONS: As noted on his OCT, which were reviewed. He was started on Augmentin prior to his admission, now is on vancomycin and Zosyn. PAST MEDICAL HISTORY: COPD, lung cancer with metastasis to the brain, chronic bronchitis. FAMILY HISTORY: Noncontributory. SOCIAL HISTORY: He is smoker of cigarettes and alcohol use. PHYSICAL EXAMINATION: VITAL SIGNS: Afebrile, hemodynamically stable. GENERAL: He is alert and cooperative and pleasant, in no acute distress. CHEST: Clear. HEART: Regular. ABDOMEN: Soft and nontender. EXTREMITIES: Bilateral lower extremity edema with 1+ on the left, trace on the right. He had eczema, possibly some yeast dermatitis to his feet. Erythema from left foot up pretibial, left greater than right. No inguinal adenopathy. LABORATORY STUDIES: Sodium 142, potassium 3.6, creatinine 0.7. Liver function test normal. Hemoglobin 9.1. WBC 8.4, platelet count 272,000. Differential unremarkable. Vancomycin trough 12. Urinalysis unremarkable. Blood cultures negative, previous MRSA positive, December 30. IMPRESSION: 1. Lower extremity edema with venous stasis dermatitis, cellulitis and tinea pedis. [facility] [address] [place] [address] CONSULTATION Name: FRIDA MCNAIR Room #: 426-P ADM IN M.R.#: [id number] Admission: 01/13/17 Attend Phys: Gabriele Quezada DO Discharge: Date of : 58 Report #: [id number] 2. Underlying lung cancer. RECOMMENDATIONS: Recommend leg elevation, topical antifungal and steroid creatinine. Continue with ceftriaxone. <ELECTRONICALLY SIGNED> By: Cruzito Denton MD 01/16/17 0807 1451 0331 Cruzito Denton MD /nt
--- NOTE | ~2017-01-13 | EKG ---
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
[2017-01-13 16:12] VITALS: BP 115/87
[~2017-01-13 16:12] MED LIST changes: +AUGMENTIN 875-1 EACH PO; +NEXIUM40 MG PO; +PROTONIX40 M1 PO
[2017-01-13 18:46] LABS: URINE BILIRUBIN NEGATIVE (Negative); URINE BLOOD 1+ (Negative); URINE COLOR YELLOW; URINE GLUCOSE-RANDOM* NEGATIVE (Negative); URINE KETONES NEGATIVE (Negative); URINE NITRITE NEGATIVE (Negative); URINE PROTEIN (DIPSTICK) NEGATIVE (Negative); URINE UROBILINOGEN 0.2 E.U./dl (0.2-1.0)
[2017-01-13 18:53] LABS: SQUAMOUS None Seen /LPF (0-3); URINE RBC 3-10 Few /HPF (0-2)
[2017-01-13 18:54] LABS: BACTERIA None Seen /HPF (None Seen); CASTS None Seen /LPF (None Seen); CRYSTALS None Seen /LPF (None Seen); URINE WBC 0-5 Rare /HPF (0-5)
[2017-01-13 19:01] LABS: HEMATOCRIT 32.5 % (42.0-52.0); HEMOGLOBIN 10.5 gm/dL (14.0-18.0); MCH 29.4 pg (26.0-34.0); MCHC 32.4 g/dL (28.0-37.0); MCV 90.9 fL (80.0-100.0); PLATELET COUNT 323 thou/uL (150-400); RBC 3.57 mil/uL (4.50-6.00); RDW 16.1 % (10.5-14.5); WBC 11.6 thou/uL (4.0-11.0)
[2017-01-13 19:07] LABS: MANUAL DIFF YES
[2017-01-13 19:11] LABS: CALCIUM 8.5 mg/dL (8.5-10.1); CREATININE 0.6 mg/dL (0.7-1.3); POTASSIUM 3.6 mmol/L (3.5-5.1)
[2017-01-13 19:18] LABS: INR 1.1; PROTIME 11.4 Seconds (9.3-11.4)
[2017-01-13 19:22] LABS: ALBUMIN 2.7 g/dL (3.4-5.0); TOTAL BILIRUBIN 0.5 mg/dL (<0.1-1.0); TOTAL PROTEIN 6.5 g/dL (6.4-8.2)
[2017-01-13 19:28] LABS: ABSOLUTE NEUTROPHILS 8.8 thou/uL (1.4-8.2); ANISOCYTOSIS 1+; TOTAL CELL COUNT 100
[2017-01-13 20:30] VITALS: BP 145/98
[2017-01-14 04:30] VITALS: BP 112/76
[2017-01-14 05:48] LABS: HEMATOCRIT 28.1 % (42.0-52.0); HEMOGLOBIN 9.5 gm/dL (14.0-18.0); MCH 30.6 pg (26.0-34.0); MCHC 33.8 g/dL (28.0-37.0); MCV 90.5 fL (80.0-100.0); RBC 3.11 mil/uL (4.50-6.00); RDW 15.8 % (10.5-14.5); WBC 8.7 thou/uL (4.0-11.0)
[2017-01-14 06:12] LABS: CALCIUM 8.1 mg/dL (8.5-10.1); CREATININE 0.8 mg/dL (0.7-1.3); POTASSIUM 3.6 mmol/L (3.5-5.1); TOTAL BILIRUBIN 0.5 mg/dL (<0.1-1.0); TOTAL PROTEIN 5.2 g/dL (6.4-8.2)
[2017-01-14 07:23] VITALS: BP 107/73
[2017-01-14 17:50] VITALS: BP 117/83
[2017-01-14 20:00] VITALS: BP 127/93
[2017-01-15 03:55] LABS: HEMATOCRIT 27.8 % (42.0-52.0); HEMOGLOBIN 9.1 gm/dL (14.0-18.0); MCH 29.9 pg (26.0-34.0); MCHC 32.8 g/dL (28.0-37.0); MCV 91.4 fL (80.0-100.0); PLATELET COUNT 272 thou/uL (150-400); RBC 3.05 mil/uL (4.50-6.00); RDW 16.2 % (10.5-14.5); WBC 8.4 thou/uL (4.0-11.0)
[2017-01-15 03:57] LABS: CREATININE 0.7 mg/dL (0.7-1.3); POTASSIUM 3.6 mmol/L (3.5-5.1)
[2017-01-15 04:03] LABS: MANUAL DIFF YES
[2017-01-15 04:50] VITALS: BP 129/90
[2017-01-15 05:45] LABS: ABSOLUTE NEUTROPHILS 6.7 thou/uL (1.4-8.2); ANISOCYTOSIS 1+; TOTAL CELL COUNT 100
[2017-01-15 09:02] VITALS: BP 117/93
[2017-01-15 20:00] VITALS: BP 129/85
[2017-01-16 04:00] VITALS: BP 118/88
[2017-01-16 05:56] LABS: CALCIUM 8.5 mg/dL (8.5-10.1); CREATININE 0.8 mg/dL (0.7-1.3); POTASSIUM 4.1 mmol/L (3.5-5.1)
[2017-01-16 07:40] VITALS: BP 116/81
[2017-01-16 08:21] VITALS: BP 116/81
[2017-01-16 16:00] VITALS: BP 113/82
[2017-01-16 20:00] VITALS: BP 122/78
[2017-01-17 04:00] VITALS: BP 113/79
[2017-01-17 04:37] LABS: BASOPHILS 0.4 % (0.0-2.0); EOSINOPHILS 3.1 % (0.0-3.0); HEMATOCRIT 31.4 % (42.0-52.0); HEMOGLOBIN 10.4 gm/dL (14.0-18.0); MCH 29.7 pg (26.0-34.0); MCHC 33.1 g/dL (28.0-37.0); MCV 89.7 fL (80.0-100.0); MONOCYTES 9.4 % (1.0-8.0); PLATELET COUNT 327 thou/uL (150-400); POLYS 68.1 % (36.0-66.0); RDW 15.9 % (10.5-14.5); WBC 8.8 thou/uL (4.0-11.0)
[2017-01-17 04:43] LABS: MANUAL DIFF NO
[2017-01-17 04:49] LABS: CREATININE 0.7 mg/dL (0.7-1.3); POTASSIUM 3.8 mmol/L (3.5-5.1)
[2017-01-17 08:16] VITALS: BP 114/70
[2017-01-17 16:54] VITALS: BP 123/80
[2017-01-17 20:00] VITALS: BP 126/78
[2017-01-18 01:56] VITALS: BP 126/78
[2017-01-18 03:40] VITALS: BP 143/85
[2017-01-18 08:26] VITALS: BP 122/86
[2017-01-18] MEDS ORDERED: PERCOCET 10-321 EACH PO ×3 (08:37→09:15)
[2017-01-18 08:56] VITALS: BP 122/86
== END 2017-01-18 14:24 | disposition home or self-care (01) | DRG 603 ==
LOC: ER 16:12 → EROBS 19:23 → 4E 19:23
PROVIDERS: Family Medicine; Internal Medicine Endocrinology, Diabetes & Metabolism; Nurse Practitioner Family
DX: L03.116 Cellulitis of left lower limb (principal); C34.90 Malignant neoplasm of unspecified part of unspecified bronchus or lung; C79.31 Secondary malignant neoplasm of brain; L03.115 Cellulitis of right lower limb; D72.829 Elevated white blood cell count, unspecified; R53.81 Other malaise; I11.0 Hypertensive heart disease with heart failure; I50.9 Heart failure, unspecified; J45.909 Unspecified asthma, uncomplicated; B35.3 Tinea pedis; F10.21 Alcohol dependence, in remission; F17.210 Nicotine dependence, cigarettes, uncomplicated; I87.2 Venous insufficiency (chronic) (peripheral); J44.9 Chronic obstructive pulmonary disease, unspecified; Z88.8 Allergy status to other drugs, medicaments and biological substances; Z79.899 Other long term (current) drug therapy; Z87.01 Personal history of pneumonia (recurrent); Z87.81 Personal history of (healed) traumatic fracture
CPT/HCPCS: 10183; 10783

== ENCOUNTER 2017-03-26 13:43 | Inpatient (IN) | payer OTHER ==
[~2017-03-26] VITALS: Ht 167.6 cm; Wt 59.9 kg
--- NOTE | ~2017-03-26 | HC ---
[facility] [place] [address] CONSULTATION Name: XUFRIDA Veronica Room #: 419-P [facility] IN M.R.#: [id number] Admission: 03/26/17 Attend Phys: Gabriele Quezada DO Discharge: Date of : 58 Report #: [id number] THIS REPORT FOR: //name// CC: FAM unknown Gabriele Quezada REASON FOR CONSULTATION: I was asked to evaluate concerning encephalopathy with possible encephalitis. HISTORY OF PRESENT ILLNESS: The patient is a 56-year-old with known metastatic lung cancer with mets to the brain. He has been on chemotherapy with nivolumab. His last dose was four days ago. He has had issues with encephalopathy, noting decreased mental status and confusion along with multiple falls that has occurred over the last week. He initially was on narcotics for pain. He quit using those and started on Flexeril for his pain about 10 days ago. No documented fever, chills or sweats. As far as we know he has not hit his head. He presented through the Emergency Room for further hospitalization. Since being hospitalized on the , he has been without fever. MRI scan showed evidence of metastatic brain disease with no new lesions. He has been treated with azithromycin and ceftriaxone. Oncology was concerned about REPORTS ANALYSIS MANAGER reaction to his chemotherapy and placed him on prednisone. His significant other is in the room and has noted that he is more lucid today than he was yesterday. REVIEW OF SYSTEMS: Notes no rashes. He has had several bruises from his falls. He has chronic cough consistent with his tobacco use. No nausea, vomiting or diarrhea. He has had some anorexia. No dysuria or frequency. ALLERGIES: HYDRALAZINE. MEDICATIONS: As noted on his MAR, now on prednisone, ceftriaxone and azithromycin. PAST MEDICAL HISTORY: COPD, lung cancer with mets to the brain, chronic bronchitis, COPD. FAMILY HISTORY: Noncontributory. SOCIAL HISTORY: He is a smoker of cigarettes and a fair amount of alcohol use. He has a significant other. He is residing currently in a hotel for he has no other home at this time. REVIEW OF SYSTEMS: Noted above. PHYSICAL EXAMINATION: Afebrile and hemodynamically stable. He was lethargic, although would arouse and able to converse. He was confused. Main complaint when confronted was a mild headache. [facility] [address] [place] [address] CONSULTATION Name: FRIDA MCNAIR Veronica Room #: 419-P [facility] IN .R.#: [id number] Admission: 03/26/17 Attend Phys: Gabriele Quezada DO Discharge: Date of : 58 Report #: [id number] DICTATION ENDS HERE <ELECTRONICALLY SIGNED> By: Cruzito Denton MD 03/30/17 1054 1407 24 Cruzito Denton MD /nt
--- NOTE | ~2017-03-26 | HC ---
[facility] [place] [address] CONSULTATION Name: XUFRIDA Veronica Room #: 419-P [facility] IN M.R.#: [id number] Admission: 03/26/17 Attend Phys: Gabriele Quezada DO Discharge: Date of : 58 Report #: [id number] THIS REPORT FOR: //name// CC: FAM unknown Gabriele Quezada Continuation: HEENT: Unremarkable other than being edentulous. NECK: Supple. NEUROLOGIC: Cranial nerves intact. CHEST: Clear. HEART: Regular. ABDOMEN: Soft and nontender. EXTREMITIES: Unremarkable. Strength in the lower extremities was normal. He did have a bit of a tremor with movement. SKIN: He had some bruising. No decubiti or rash. LABORATORY STUDIES: Chest x-ray, atelectasis in the right lower lobe, had fullness in the right hilum. MRI scan showed changes of metastatic lesions, improved from previous. He did have some chronic changes from his radiation. No cultures have been obtained. Sodium 138, potassium 3.7, bicarbonate 27, creatinine 0.7, alkaline phosphatase 119, AST 112, bilirubin normal. Albumin at 3.4. Alcohol undetectable. Drug screen pending. Hemoglobin 10, white count 8.4, platelet count 220,000, differential unremarkable. Urinalysis pending. IMPRESSION: A 56-year-old with lung cancer with metastasis to the brain, on targeted chemotherapy, now with encephalopathy. I suspect toxic metabolic issue at this point in time. Other consideration would be infection that will need to be ruled out. PLAN: Would recommend continuing his prednisone at this time. We will have a lumbar puncture performed and will screen for bacteria, fungus, AFB and virus. We will determine treatment options pending initial CSF examination. I agree with withholding Flexeril at this time. Limit narcotics as much as possible. <ELECTRONICALLY SIGNED> By: Cruzito Denton MD 03/30/17 1054 1420 28 Cruzito Denton MD /nt
--- NOTE | ~2017-03-26 | EKG ---
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
--- NOTE | ~2017-03-26 | EKG ---
[address] [address] ELECTROCARDIOGRAM REPORT Name: FRIDA MCNAIR Room #: 419-P ADM IN M.R.#: [id number] Admission: 03/26/17 Attend Phys: Gabriele Quezada DO Discharge: Date of : 58 Report #: [id number] THIS REPORT FOR: //name// [facility] ED Test Date: 2017-03-26 Test Time: 15:10:40 Pat Name: FIRDA MCNAIR Department: Room: 419 Gender: M Fuselage Framer: Lauren PRESLEY : 1960 Requested By: Felicia Powell Order Number: [id number] MD: Dereck Ruffin Measurements Intervals [place] Rate: 121 P: 81 HI: 132 QRS: 70 QRSD: 84 T: 7 QT: 340 QTc: 483 Interpretive Statements Sinus tachycardia Probable left atrial enlargement Probable left ventricular hypertrophy Borderline prolonged QT interval Compared to ECG 01/13/2017 16:27:01 No significant changes Electronically Signed On 03-26-2017 22:21:57 CDT by Dereck Ruffin [email or web address] <ELECTRONICALLY SIGNED> By: Dereck Ruffin MD [id number] 09 09 Dereck Ruffin MD /BREE
[2017-03-26 13:44] VITALS: BP 110/78
[2017-03-26 15:06] LABS: HEMOGLOBIN 10.3 gm/dL (14.0-18.0)
[2017-03-26 15:10] LABS: HEMATOCRIT 32.5 % (42.0-52.0); MCHC 31.6 g/dL (28.0-37.0); RBC 4.28 mil/uL (4.50-6.00); RDW 18.5 % (10.5-14.5); WBC 11.4 thou/uL (4.0-11.0)
[2017-03-26 15:13] LABS: MANUAL DIFF YES
[2017-03-26 15:14] LABS: ANION GAP 12 mmol/L (7-16); BUN 7 mg/dL (7-18); CALCIUM 9.1 mg/dL (8.5-10.1); CHLORIDE 97 mmol/L (98-107); CO2 25 mmol/L (21-32); GLUCOSE 79 mg/dL (74-106); POTASSIUM 3.4 mmol/L (3.5-5.1); SODIUM 134 mmol/L (136-145)
[2017-03-26 15:22] LABS: ALBUMIN 3.4 g/dL (3.4-5.0); ALKALINE PHOSPHATASE 119 U/L (46-116); SGOT 112 U/L (15-37); SGPT 45 U/L (30-65); TOTAL BILIRUBIN 0.8 mg/dL (<0.1-1.0); TOTAL PROTEIN 7.3 g/dL (6.4-8.2); TROPONIN-I < 0.04 ng/mL (<0.04-0.07)
[2017-03-26 16:34] LABS: ABSOLUTE NEUTROPHILS 9.2 thou/uL (1.4-8.2); ANISOCYTOSIS 1+; POIKILOCYTOSIS SLIGHT; TOTAL CELL COUNT 100
[2017-03-26 16:35] LABS: HYPOCHROMASIA SLIGHT; LARGE PLATELETS OCCASIONAL; PLATELET COUNT 177 thou/uL (150-400)
[2017-03-26 16:45] LABS: ABG SAMPLE TYPE ARTERIAL; BE(vivo) -0.3 mmol/L (-2 to +3); HCO3 23.5 mmol/L (22.0-26.0); LACTATE 1.32 mmol/L (0.5-2.0); O2(CT) 14.2 mL/dL (15.0-23.0); O2Hb 91.9 % (92.0-98.0); PCO2 35.4 mmHg (35.0-45.0); PO2 75.8 mmHg (80.0-100.0); sO2 95.7 % (92.0-98.0); tCO2 24.6 mmol/L (24.0-30.0)
[2017-03-26 16:46] LABS: ABG COMMENT NO COMPLICATIONS.; STICK SITE R.BRACHIAL
[2017-03-26 18:15] VITALS: BP 113/68
[2017-03-26 18:39] VITALS: BP 150/89
[2017-03-26 20:00] VITALS: BP 91/59
[2017-03-26 23:53] VITALS: BP 148/97
[2017-03-27 04:27] VITALS: BP 127/110
[2017-03-27 05:40] LABS: HEMATOCRIT 32.4 % (42.0-52.0); HEMOGLOBIN 10.2 gm/dL (14.0-18.0); MANUAL DIFF YES; MCH 23.5 pg (26.0-34.0); MCHC 31.4 g/dL (28.0-37.0); PLATELET COUNT 220 thou/uL (150-400); RBC 4.32 mil/uL (4.50-6.00); RDW 18.3 % (10.5-14.5); WBC 8.4 thou/uL (4.0-11.0)
[2017-03-27 05:47] LABS: CALCIUM 8.6 mg/dL (8.5-10.1); CREATININE 0.7 mg/dL (0.7-1.3); POTASSIUM 3.7 mmol/L (3.5-5.1)
[2017-03-27 07:38] VITALS: BP 112/60
[2017-03-27 08:40] LABS: ABSOLUTE NEUTROPHILS 5.5 thou/uL (1.4-8.2); ANISOCYTOSIS 1+; HYPOCHROMASIA 1+; PLATELET ESTIMATE NORMAL; TOTAL CELL COUNT 100
[2017-03-27 14:38] VITALS: BP 110/72
[2017-03-27 14:42] VITALS: BP 110/72
[2017-03-27 20:00] VITALS: BP 131/92
[2017-03-28 08:55] VITALS: BP 99/81
[2017-03-28 20:00] VITALS: BP 131/44
[2017-03-29 03:45] VITALS: BP 141/93
[2017-03-29 08:00] VITALS: BP 158/101
[2017-03-29 15:43] LABS: CSF CLARITY CLEAR; CSF COLOR COLORLESS; CSF WBC 0 /mm3 (0-10); MANUAL DIFF NO; NUMBER OF TUBES 4; VOLUME 11 ml
[2017-03-29 15:52] LABS: CSF GLUCOSE 87 mg/dL (40-70); CSF PROTEIN 47 mg/dL (15-45)
[2017-03-29 16:00] VITALS: BP 120/90
[2017-03-29 21:06] VITALS: BP 151/90
[2017-03-30 03:21] VITALS: BP 153/97
[2017-03-30 06:30] LABS: HEMATOCRIT 35.7 % (42.0-52.0); HEMOGLOBIN 10.5 gm/dL (14.0-18.0); MCH 23.2 pg (26.0-34.0); MCHC 29.6 g/dL (28.0-37.0); MCV 78.4 fL (80.0-100.0); RBC 4.55 mil/uL (4.50-6.00); RDW 19.6 % (10.5-14.5); WBC 11.3 thou/uL (4.0-11.0)
[2017-03-30 06:41] LABS: CREATININE 0.6 mg/dL (0.7-1.3); POTASSIUM 4.3 mmol/L (3.5-5.1)
[2017-03-30 08:25] VITALS: BP 136/100
[2017-03-30 08:56] LABS: HSV PCR SOURCE CSF
[2017-03-30] MEDS ORDERED: PREDNISONE 20 M20 M1 PO (14:14)
== END 2017-03-30 16:26 | DRG 180 ==
LOC: ER 13:43 → EROBS 16:28 → 4E 16:28
PROVIDERS: Family Medicine; Nurse Practitioner Family; Specialist
PROC: 009U3ZX Drainage of Spinal Canal, Percutaneous Approach, Diagnostic (ICD-10-PCS; principal; 2017-03-29)
PROC: B01B1ZZ Fluoroscopy of Spinal Cord using Low Osmolar Contrast (ICD-10-PCS; principal; 2017-03-29)
DX: C34.90 Malignant neoplasm of unspecified part of unspecified bronchus or lung (principal); G93.41 Metabolic encephalopathy; G04.90 Encephalitis and encephalomyelitis, unspecified; C79.31 Secondary malignant neoplasm of brain; R44.3 Hallucinations, unspecified; F10.10 Alcohol abuse, uncomplicated; I10 Essential (primary) hypertension; F17.210 Nicotine dependence, cigarettes, uncomplicated; Y90.0 Blood alcohol level of less than 20 mg/100 ml; Z79.899 Other long term (current) drug therapy; Z88.8 Allergy status to other drugs, medicaments and biological substances; Z87.01 Personal history of pneumonia (recurrent)
CPT/HCPCS: 10183

== ENCOUNTER 2017-03-30 14:27 | Inpatient (IN) | payer OTHER ==
[~2017-03-30] VITALS: Ht 167.6 cm; Wt 60.3 kg
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
--- NOTE | ~2017-03-30 | H ---
[facility] [place] [address] HISTORY AND PHYSICAL Name: FRIDA MCNAIR Veronica Room #: 514-P [facility] IN M.R.#: [id number] Admission: 03/30/17 Attend Phys: Guillermo Wade MD Discharge: Date of : 58 Report #: [id number] THIS REPORT FOR: //name// CC: FAM unknown Juancarlos Fraustoberg DATE OF SERVICE: 03/30/2017 Note I am covering for Dr. Wade. CHIEF COMPLAINT: Mobility and self-care deficits due to encephalopathy. HISTORY OF PRESENT ILLNESS: The patient is a pleasant 56-year-old right hand dominant male with a history of lung cancer with brain metastases. He reports that he feels very weak and has impaired balance. He has been treated with radiation therapy and has completed 3 courses of it. He has also had chemotherapy recently. There was a medication changed from oxycodone to Flexeril and it was noted that he became confused and was hallucinating. He has been having a lot of falls lately. He was admitted to [facility] on 03/26/2017. He was diagnosed with acute alcohol intoxication, community-acquired pneumonia, fall, closed head injury, lung mass, metastatic cancer to brain and hypertension. It was determined that he would benefit from an acute inpatient rehabilitation admission due to a decline in his overall function. Secondary to a decline in his overall function, he is now being admitted to the rehabilitation unit. Note, I am covering for Dr. Wade today and therefore completing this history and physical. PAST MEDICAL HISTORY: As above, also pertinent for alcoholism, bandemia, bilateral lower leg cellulitis, left upper arm cellulitis and abrasions, community-acquired pneumonia, dyspnea, gastric ulcer with hemorrhage, hallucinations, healthcare-associated pneumonia, hypoxemia, immunosuppression, lung cancer, metastatic cancer to the brain, rib fractures, sepsis. ALLERGIES: HYDRALAZINE. MEDICATIONS: Reviewed, please see the written documentation of this history and physical. SOCIAL HISTORY: He states that he lives with his significant other in a motel. At the current time, there are no steps to get into this motel. FUNCTIONAL HISTORY: He reports that he walked with a rolling walker prior to admission. [facility] [address] [place] [address] HISTORY AND PHYSICAL Name: FRIDA MCNAIR Room #: 514-P [facility] IN [facility]#: [id number] Admission: 03/30/17 Attend Phys: Giullermo Wade MD Discharge: Date of : 58 Report #: [id number] REVIEW OF SYSTEMS: He denies chest pain, shortness of breath, fevers or chills, headaches. He does report impaired balance, altered mental status, anorexia, issues with shortness of breath, which have improved, changes in appetite including a decreased appetite, weakness and weight loss. Otherwise, remainder of 14-point review is negative except for what was stated above. PHYSICAL EXAMINATION: GENERAL: No acute distress, well developed, well nourished, afebrile. CARDIOVASCULAR: S1, S2. LUNGS: Aerating well. ABDOMEN: Soft, nontender, nondistended. EXTREMITIES: Calves are nontender. LYMPHATICS: No cervical adenopathy. MUSCULOSKELETAL: Functionally he is able to move his arms and legs throughout a functional range of motion with 4/5 strength. Tone within normal limits. No muscle atrophy. NEUROLOGIC/PSYCHIATRIC: Coordination is fair. Muscle stretch reflexes are 1/4 and symmetric. Sensation is impaired in his left foot. He was alert and able to answer my questions. He was cooperative with the exam. There was no wet or gurgling quality to his voice. No dysarthria or aphasia. His confusion appears to have improved as he was able to carry on a very normal conversation. He was pleasant and cooperative. IMPRESSION: Mobility and self-care deficits in a 56-year-old right hand dominant male secondary to, 1. Immune mediated encephalitis. 2. Metabolic encephalopathy. 3. Lung cancer with metastatic lesions to the brain. 4. Hallucinations. 5. Altered mental status. 6. Frequent falls and ataxia. 7. Tobacco abuse. 8. Alcohol abuse. 9. History of traumatic brain injury. 10. Signs and symptoms of peripheral neuropathy, likely metabolic cause. PLAN: 1. Admit to the rehabilitation unit for comprehensive therapies. 2. Please see the plan of care post-admission physician evaluation and admission orders for full details of his rehabilitation care plan. 3. Discussed the rehabilitation program in detail with the patient and he is in agreement. 4. Weekly team conference will be held and discussed his rehabilitation progress. 5. Please see the admission orders, post-admission physician evaluation and individualized overall plan of care, which follow this dictation for full [address] [address] HISTORY AND PHYSICAL Name: FRIDA MCNAIR Room #: 514-P [facility] IN [facility]#: [id number] Admission: 03/30/17 Attend Phys: Guillermo Wade MD Discharge: Date of : 58 Report #: [id number] details of his rehabilitation admission. 6. Dr. Wade will be back in the office on 04/03/2017 and will assume care at that time. Note the patient was mistakenly admitted to my service, but should be admitted to Dr. Guillermo Wade's service. I would undergo another section actually and this section will be entitled post-admission physician evaluation. 7. A post-admission physician evaluation has been completed. The patient's preadmission screening was reviewed in its entirety by this examiner. The current clinical condition is supported by the information contained within. The patient is an appropriate candidate to undergo a comprehensive inpatient rehabilitation program consisting of PT, OT, speech 3 hours a day at least 5 days a week. Furthermore, nothing is changed since preadmission screen was completed to suggest that the patient would not be able to tolerate or benefit from the rehabilitation program. It is my opinion that inpatient rehabilitation rather than nursing home is more appropriate for the patient due to multiple medical needs, requiring comprehensive followup care. The patient is at risk of clinical complications during participation in rehabilitation due to the following adverse medical conditions: Lung cancer with metastasis to the brain, chronic alcoholism, recent pneumonia, COPD, GI bleeding in the past, chronic bronchitis, nonsmall cell lung carcinoma diagnosed in March of 2016 with chemo and radiation treatments and brain metastases have been noted. Peripheral neuropathy of the lower extremities, history of closed head injury, current smoking, history of illicit drug abuse in the 1980s, hypertension, bilateral lower extremity weakness and frequent falls. My plan to manage these conditions, which could impact his participation in rehabilitation. He is to consult Internal Medicine, Neurology, Infectious Disease and Neuropsychology to follow him closely during his rehabilitation course. He will be followed closely by the hospitalist during his rehabilitation stay to help manage his multiple medical conditions. INDIVIDUALIZED OVERALL PLAN OF CARE: SUMMARIZATION OF FINDINGS: The patient is receiving inpatient rehabilitation due to the following functional impairments: 1. Immune mediated encephalitis. 2. Metabolic encephalopathy. 3. Ataxia. 4. Nonsmall cell lung cancer with metastasis to the brain. 5. Peripheral neuropathy, likely metabolic cause. 6. Recent history of multiple falls. 7. Tremors. Identified interventions include physical therapy, occupational therapy, and speech therapy to address his mobility and self-care deficits, communication deficits, cognitive and swallowing impairments. Physical medicine [facility] [address] [place] [address] HISTORY AND PHYSICAL Name: FRIDA MCNAIR Room #: 514-P [facility] IN [facility].#: [id number] Admission: 03/30/17 Attend Phys: Guillermo Wade MD Discharge: Date of : 58 Report #: [id number] and rehabilitation will provide management of his rehabilitation care plan. Internal Medicine will follow him for his multiple medical issues. Rehabilitation nursing care 24 hours a day for care need, director of social services for discharge planning and medical equipment needs, dietitian consultation for nutritional purposes. ESTIMATED LENGTH OF STAY: Approximately 10-14 days, which is in agreement with the preadmission screen. ANTICIPATED FUNCTIONAL OUTCOME: Modified independent with mobility and self-care skills. ANTICIPATED DISCHARGE DESTINATION: Home with his significant other. He will likely need home health services at that time. Medical prognosis is fair. He will continue to receive internal medicine followup as well as infectious disease and neurology followup. Anticipated therapies include physical therapy, occupational therapy and speech therapy 3 hours a day 5 days a week for an anticipated duration of 10-14 days. SUMMARIZATION OF TREATMENT PLAN: The patient will continue to receive an inpatient rehabilitation program as outlined above in an effort to improve his overall function and return home at a modified independent level within 10-14 days. <ELECTRONICALLY SIGNED> By: Juancarlos Tidwell DO 03/31/17 1632 0930 1021 Juancarlos Tidwell DO /nt
[~2017-03-30 14:27] MED LIST changes: +PREDNISONE 20 M20 M1 PO
[2017-03-30 16:25] VITALS: BP 151/98
[2017-03-31 04:47] VITALS: BP 177/98
[2017-03-31 04:49] LABS: HEMATOCRIT 31.5 % (42.0-52.0); HEMOGLOBIN 9.8 gm/dL (14.0-18.0); MCHC 31.2 g/dL (28.0-37.0); MCV 77.1 fL (80.0-100.0); RBC 4.09 mil/uL (4.50-6.00); RDW 19.1 % (10.5-14.5); WBC 10.7 thou/uL (4.0-11.0)
[2017-03-31 04:58] LABS: CALCIUM 8.7 mg/dL (8.5-10.1); CREATININE 0.6 mg/dL (0.7-1.3); POTASSIUM 3.8 mmol/L (3.5-5.1)
[2017-03-31 07:23] VITALS: BP 155/94
[2017-03-31 16:18] VITALS: BP 107/73
[2017-04-01 05:19] VITALS: BP 149/96
[2017-04-01 15:12] VITALS: BP 130/78
[2017-04-02 03:23] VITALS: BP 145/98
[2017-04-02 08:00] VITALS: BP 112/78
[2017-04-03 06:28] VITALS: BP 120/65
[2017-04-03 16:00] VITALS: BP 83/54
[2017-04-03 16:20] VITALS: BP 89/54
[2017-04-04 00:10] LABS: GLYCOHEMOGLOBIN (HGB A1C) 4.9 % (4.8-5.6)
[2017-04-04 05:54] VITALS: BP 103/70
[2017-04-04 17:32] VITALS: BP 92/57
[2017-04-05 05:46] VITALS: BP 100/68
[2017-04-05 09:56] VITALS: BP 99/64
[2017-04-05 11:47] VITALS: BP 99/64
[2017-04-05 12:12] VITALS: BP 99/64
[2017-04-05] MEDS ORDERED: SYMBICORT160 MCG/4. INH (13:05)
[2017-04-05] MEDS ORDERED: PANTOPRAZOLE SO40 M1 PO (13:05)
[2017-04-05] MEDS ORDERED: PREDNISONE 20 M20 M1 PO (13:05)
[2017-04-05] MEDS ORDERED: NICOTINE TRANSD21 M1 TRANSDERM (13:05)
== END 2017-04-05 14:00 | disposition home health service (06) | DRG 97 ==
PROVIDERS: Nurse Practitioner; Physical Medicine & Rehabilitation
DX: G04.81 Other encephalitis and encephalomyelitis (principal); G93.41 Metabolic encephalopathy; R44.3 Hallucinations, unspecified; C79.31 Secondary malignant neoplasm of brain; C34.90 Malignant neoplasm of unspecified part of unspecified bronchus or lung; G31.84 Mild cognitive impairment of uncertain or unknown etiology; F43.22 Adjustment disorder with anxiety; F17.210 Nicotine dependence, cigarettes, uncomplicated; F10.10 Alcohol abuse, uncomplicated; J44.9 Chronic obstructive pulmonary disease, unspecified; I50.9 Heart failure, unspecified; E11.42 Type 2 diabetes mellitus with diabetic polyneuropathy; I11.0 Hypertensive heart disease with heart failure; G89.29 Other chronic pain; M54.9 Dorsalgia, unspecified; R53.81 Other malaise; D64.9 Anemia, unspecified; Z87.01 Personal history of pneumonia (recurrent); Z88.8 Allergy status to other drugs, medicaments and biological substances; Z87.820 Personal history of traumatic brain injury; Z91.81 History of falling
CPT/HCPCS: 10112

== ENCOUNTER 2017-09-21 13:10 | Inpatient (IN) | payer OTHER ==
[~2017-09-21] VITALS: Ht 170.2 cm; Wt 66.2 kg
--- NOTE | ~2017-09-21 | EKG ---
[address] [address] ELECTROCARDIOGRAM REPORT Name: FRIDA MCNAIR Room #: 417-I ADM IN ..#: [id number] Admission: 09/21/17 Attend Phys: Trevor Jones MD Discharge: Date of : 58 Report #: [id number] THIS REPORT FOR: //name// [facility] ED Test Date: 2017-09-21 Test Time: 14:05:18 Pat Name: FRIDA MCNAIR Department: Room: [facility] Gender: M [employer] Worker: [facility] : 1960 Requested By: Cruzito Valencia Order Number: [id number] MD: Iván Leyva Measurements Intervals [place] Rate: 116 P: 68 MN: 119 QRS: 68 QRSD: 82 T: 57 QT: 309 QTc: 430 Interpretive Statements Sinus tachycardia Otherwise no significant abnormality Compared to ECG 03/28/2017 00:37:38 No significant changes Electronically Signed On 09-21-2017 17:04:06 PROTECTION OFFICER by Iván Leyva [email or web address] <ELECTRONICALLY SIGNED> By: Iván Leyva MD, [facility] 09/21/17 1704 1405 140 Iván Leyva MD, [facility] /EPI
--- NOTE | ~2017-09-21 | HC ---
[facility] [place] [address] CONSULTATION Name: FRIDA MCNAIR Veronica Room #: 417-I ADM IN ..#: [id number] Admission: 09/21/17 Attend Phys: Trevor Jones MD Discharge: Date of : 58 Report #: [id number] THIS REPORT FOR: //name// CC: KAY PIERCE MD REASON FOR CONSULTATION: History of lung cancer with brain mets, on chemotherapy. PHYSICIAN PROVIDING CONSULTATION: Luiz Kirkland M.D., . HISTORY OF PRESENT ILLNESS: The patient is a 57-year-old male, followed by Dr. Bisi Pierce, with a history of stage IV adenocarcinoma diagnosis. He has recently been on chemotherapy with Gemzar single agent last given approximately 3 weeks ago; that was cycle 3 day 8. He is admitted reportedly with a history of shortness of air and fevers and chills. He cannot provide this information, but on looking at some notes in the office, they had called Dr. Bisi Pierce' office yesterday and also from the admitting clinician's report that the patient had those symptoms. At this time, he denies fevers or chills. He does state that he coughs. He does not tell me it is any worse than usual. He denies any bleeding. Denies any constipation or diarrhea. He does talk about some weakness in general. He really cannot provide much information. PAST MEDICAL HISTORY: Notable for the diagnosis of non-small cell lung cancer, originally diagnosed in 03/2016, with a right middle lobe biopsy showing poorly differentiated non-small cell carcinoma. This tumor was EGFR/ALK/ROS-1/MET/RET/BRAF negative. PD-L1 expression was 30%. The patient completed radiation therapy in either late 03/2016 or early 06/2016. He then had plans for Alimta and carboplatin, received two cycles, but was concerning for progression, I believe, after 2 cycles. He then received Opdivo, I believe, in about 07/2016 and he was thought to have some perhaps response with a mixed change in 02/2017. Unfortunately, in 03/2017, he was admitted and diagnosed with immune-mediated encephalitis, which benefited from prednisone. He then was left alone, then had progressive disease in May and began Gemzar. As mentioned, this was last given on 09/14/2017. Note that on that date, his hemoglobin is 10.7, white count was 3.9 and platelets were 299,000. Note that with his previous cycle of chemotherapy, his platelets have gone down to 83,000. He also has a history of COPD, peripheral neuropathy, alcohol abuse, asthma, tobacco abuse, history of a GI bleed and hypertension. SOCIAL HISTORY: This information appears to be noncontributory. ALLERGIES: REPORTEDLY TO HYDRALAZINE. [address] [address] CONSULTATION Name: FRIDA MCNAIR Room #: 417-I ADM IN ..#: [id number] Admission: 09/21/17 Attend Phys: Trevor Jones MD Discharge: Date of : 58 Report #: [id number] MEDICATIONS: Include Lovenox 40 mg at bedtime, nicotine 21 mg, ceftriaxone 1 gram, Zithromax 500 mg daily, pantoprazole 40 daily, clotrimazole topically, docusate 100 mg b.i.d., guaifenesin 1200 b.i.d., budesonide 0.25 respiratory therapy b.i.d., methylprednisolone 62.5 q.i.d., diclofenac gel 2 grams q.i.d. topically, lorazepam as needed, oxycodone q.4h. as needed, cyclobenzaprine 10 mg q.8h. scheduled, ipratropium and albuterol inhaler, fentanyl 50 mcg IV p.r.n., IV fluids and Zofran p.r.n. LABORATORY DATA: Lab review here in the hospital, BUN of 35, creatinine 20 on admission. AST slightly elevated at 49, ALT normal. Albumin 2.5. White count 12.3 today, hemoglobin 8.5, MCV 87.9 and platelets yesterday 43,000 and today 36,000. Differential has a few more segs and neutrophils than usual. No metamyelocytes or myelocytes at this time. PHYSICAL EXAMINATION: GENERAL: The patient appears his stated age. He is in the hospital bed. NEUROLOGIC: His face is symmetrical. Memory appears to be very poor and recollection of recent events not good; historian is very questionable. LUNGS: Some soft rhonchi, particularly on the right side. HEART: Appears regular rate. LYMPHATIC: No enlarged lymph nodes. ABDOMEN: Slightly obese. No masses. Nontender. EXTREMITIES: Without clubbing, cyanosis or edema. ASSESSMENT AND PLAN: 1. Non-small cell lung cancer, recently received chemotherapy approximately 2 weeks ago, unclear what had been responding earlier when assessed. 2. Thrombocytopenia, likely related to chemotherapy or recent infection. We will check B12, iron, folate and TSH. Would hold Lovenox. 3. History of encephalitis, immune related. No specific therapy. 4. History of alcohol abuse, avoid. 5. Tobacco abuse. Nicotine patch in place. 6. Chronic back pain. Percocet as needed. 7. History of gastrointestinal bleed in the past. Continues Protonix or other acid kristofer. Note, the patient had a negative V/Q scan at admit. <ELECTRONICALLY SIGNED> By: Luiz Kirkland MD 09/22/17 1943 0850 [id number] Luiz Kirkland MD /nt
[~2017-09-21 13:10] MED LIST changes: +PANTOPRAZOLE SO40 M1 PO
[2017-09-21] MEDS ORDERED: FLEXERIL PO (13:28)
[2017-09-21] MEDS ORDERED: GYNE-LOTRIMIN-745 GM VG (13:28)
[2017-09-21] MEDS ORDERED: VOLTAREN GEL 1100 G2 TOP (13:29)
[2017-09-21] MEDS ORDERED: POTASSIUM20 PO (13:31)
[2017-09-21 13:58] LABS: HEMATOCRIT 30.2 % (42.0-52.0); HEMOGLOBIN 9.8 gm/dL (14.0-18.0); MCH 28.4 pg (26.0-34.0); MCHC 32.5 g/dL (28.0-37.0); MCV 87.5 fL (80.0-100.0); RBC 3.45 mil/uL (4.50-6.00); RDW 26.8 % (10.5-14.5); WBC 23.4 thou/uL (4.0-11.0)
[2017-09-21 14:01] LABS: ANION GAP 10 mmol/L (7-16); BUN 35 mg/dL (7-18); CHLORIDE 99 mmol/L (98-107); CO2 26 mmol/L (21-32); GLUCOSE 124 mg/dL (74-106); SODIUM 135 mmol/L (136-145)
[2017-09-21 14:09] LABS: BE(vivo) 0.3 mmol/L (-2 to +3); HCO3 25.4 mmol/L (22.0-26.0); PCO2 43.4 mmHg (35.0-45.0); PO2 66.9 mmHg (80.0-100.0); pH 7.386 (7.360-7.450)
[2017-09-21 14:10] LABS: ALBUMIN 2.5 g/dL (3.4-5.0); MAGNESIUM 2.4 mg/dL (1.8-2.4); SGOT 49 U/L (15-37); SGPT 37 U/L (30-65); TOTAL PROTEIN 6.8 g/dL (6.4-8.2); TROPONIN-I < 0.04 ng/mL (<0.06)
[2017-09-21 14:19] LABS: ANISOCYTOSIS 2+
[2017-09-21 14:22] LABS: PLATELET COUNT 43 thou/uL (150-400)
[2017-09-21 15:47] VITALS: BP 93/62
[2017-09-21 16:25] VITALS: BP 92/61
[2017-09-21 19:19] VITALS: BP 89/61
[2017-09-21 19:22] VITALS: BP 107/72
[2017-09-22 04:06] LABS: HEMOGLOBIN 8.5 gm/dL (14.0-18.0); MCH 28.6 pg (26.0-34.0); MCV 87.9 fL (80.0-100.0); WBC 12.3 thou/uL (4.0-11.0)
[2017-09-22 04:08] LABS: HEMATOCRIT 26.2 % (42.0-52.0); MCHC 32.6 g/dL (28.0-37.0); RBC 2.98 mil/uL (4.50-6.00); RDW 27.6 % (10.5-14.5)
[2017-09-22 04:23] LABS: CALCIUM 8.2 mg/dL (8.5-10.1); CREATININE 1.8 mg/dL (0.7-1.3); MAGNESIUM 2.4 mg/dL (1.8-2.4); POTASSIUM 4.4 mmol/L (3.5-5.1)
[2017-09-22 06:25] LABS: ABSOLUTE NEUTROPHILS 10.7 thou/uL (1.4-8.2); NUCLEATED RBCS 3 /100WBC
[2017-09-22 06:26] LABS: MACROCYTES 1+; MICROCYTES 1+
[2017-09-22 06:27] LABS: ANISOCYTOSIS 3+; HYPOCHROMASIA SLIGHT; LARGE PLATELETS RARE; PLATELET COUNT 36 thou/uL (150-400)
[2017-09-22 06:28] LABS: POLYCHROMASIA OCCASIONAL
[2017-09-22 07:29] VITALS: BP 84/51
[2017-09-22 09:04] LABS: % SATURATION 10 % (20-39); IRON 16 ug/dL (65-175); TIBC 159 ug/dL (250-450)
[2017-09-22 09:33] LABS: FOLIC ACID 7.2 ng/mL (8.6-58.9); TSH 0.372 uIU/mL (0.358-3.740)
[2017-09-22 10:00] LABS: APTT 34.8 Seconds (24.5-32.8); INR 1.1; PROTIME 11.6 Seconds (9.3-11.4)
[2017-09-22 16:20] VITALS: BP 89/54
[2017-09-22 17:12] LABS: URINE BILIRUBIN NEGATIVE (Negative); URINE BLOOD TRACE (Negative); URINE CLARITY CLEAR; URINE COLOR YELLOW; URINE GLUCOSE-RANDOM* NEGATIVE (Negative); URINE KETONES NEGATIVE (Negative); URINE LEUKOCYTES-REFLEX NEGATIVE (Negative); URINE NITRITE-REFLEX NEGATIVE (Negative); URINE PROTEIN (DIPSTICK) NEGATIVE (Negative); URINE SPECIFIC GRAVITY 1.015 (1.005-1.035); URINE UROBILINOGEN 0.2 E.U./dl (0.2-1.0)
[2017-09-22 20:04] VITALS: BP 97/35
[2017-09-23 04:20] VITALS: BP 118/41
[2017-09-23 07:50] VITALS: BP 103/67
[2017-09-23 16:26] VITALS: BP 134/82
[2017-09-23 19:40] VITALS: BP 147/83
[2017-09-24 03:00] VITALS: BP 158/90
[2017-09-24 07:31] LABS: HEMATOCRIT 24.2 % (42.0-52.0); HEMOGLOBIN 7.8 gm/dL (14.0-18.0); MCH 28.4 pg (26.0-34.0); MCHC 32.2 g/dL (28.0-37.0); MCV 88.3 fL (80.0-100.0); RBC 2.74 mil/uL (4.50-6.00); RDW 28.7 % (10.5-14.5); WBC 16.7 thou/uL (4.0-11.0)
[2017-09-24 07:39] LABS: CALCIUM 8.4 mg/dL (8.5-10.1); MAGNESIUM 2.4 mg/dL (1.8-2.4); POTASSIUM 4.4 mmol/L (3.5-5.1)
[2017-09-24 07:40] LABS: CREATININE 0.8 mg/dL (0.7-1.3)
[2017-09-24 08:05] VITALS: BP 152/105
[2017-09-24 08:19] LABS: METAMYELOCYTES 6 %; MYELOCYTES 1 %; NUCLEATED RBCS 7 /100WBC
[2017-09-24 08:23] LABS: ANISOCYTOSIS 3+; MACROCYTES 1+; MICROCYTES 1+
[2017-09-24 08:24] LABS: HYPOCHROMASIA 1+; POLYCHROMASIA OCCASIONAL
[2017-09-24 08:26] LABS: PLATELET COUNT 71 thou/uL (150-400)
[2017-09-24 15:55] VITALS: BP 175/105
[2017-09-24 19:10] VITALS: BP 161/102
[2017-09-24 23:46] VITALS: BP 174/105
[2017-09-25 04:30] VITALS: BP 165/109
[2017-09-25 05:38] LABS: MCH 28.7 pg (26.0-34.0); MCHC 32.2 g/dL (28.0-37.0); MCV 89.1 fL (80.0-100.0); RBC 2.81 mil/uL (4.50-6.00); RDW 28.8 % (10.5-14.5); WBC 20.1 thou/uL (4.0-11.0)
[2017-09-25 07:18] VITALS: BP 152/115
[2017-09-25 07:24] LABS: ABSOLUTE NEUTROPHILS 16.9 thou/uL (1.4-8.2); ANISOCYTOSIS 3+; HYPOCHROMASIA 1+; METAMYELOCYTES 3 %; NUCLEATED RBCS 2 /100WBC; PLATELET ESTIMATE DECREASED; POLYCHROMASIA 1+
[2017-09-25 07:25] LABS: PLATELET COUNT 73 thou/uL (150-400)
[2017-09-25 15:46] VITALS: BP 148/95
[2017-09-25 15:48] VITALS: BP 137/83
[2017-09-25 19:15] VITALS: BP 149/92
[2017-09-26 02:40] VITALS: BP 139/83
[2017-09-26 03:08] VITALS: BP 144/100
[2017-09-26 04:47] LABS: HEMATOCRIT 24.3 % (42.0-52.0); HEMOGLOBIN 7.9 gm/dL (14.0-18.0); MCH 28.8 pg (26.0-34.0); MCHC 32.3 g/dL (28.0-37.0); MCV 88.9 fL (80.0-100.0); PLATELET COUNT 89 thou/uL (150-400); RBC 2.73 mil/uL (4.50-6.00); RDW 27.8 % (10.5-14.5)
[2017-09-26 04:54] LABS: ALBUMIN 2.4 g/dL (3.4-5.0); CALCIUM 8.4 mg/dL (8.5-10.1); CREATININE 0.8 mg/dL (0.7-1.3); POTASSIUM 4.1 mmol/L (3.5-5.1); TOTAL BILIRUBIN 1.2 mg/dL (<0.1-1.0); TOTAL PROTEIN 5.8 g/dL (6.4-8.2)
[2017-09-26 06:34] LABS: ABSOLUTE NEUTROPHILS 18.5 thou/uL (1.4-8.2); ANISOCYTOSIS 3+; LARGE PLATELETS OCCASIONAL; METAMYELOCYTES 3 %; MYELOCYTES 1 %; NUCLEATED RBCS 5 /100WBC
[2017-09-26 06:35] LABS: POLYCHROMASIA 2+
[2017-09-26 06:36] LABS: PLATELET ESTIMATE DECREASED
[2017-09-26 07:45] VITALS: BP 148/94
[2017-09-26 11:45] VITALS: BP 157/107
[2017-09-26 17:11] VITALS: BP 140/97
[2017-09-26 19:20] VITALS: BP 112/84
[2017-09-27 04:34] LABS: HEMATOCRIT 25.1 % (42.0-52.0); MCH 29.1 pg (26.0-34.0); MCV 91.1 fL (80.0-100.0); PLATELET COUNT 105 thou/uL (150-400); RBC 2.76 mil/uL (4.50-6.00); RDW 29.7 % (10.5-14.5); WBC 22.9 thou/uL (4.0-11.0)
[2017-09-27 05:27] LABS: ABSOLUTE NEUTROPHILS 19.9 thou/uL (1.4-8.2); MYELOCYTES 1 %; NUCLEATED RBCS 8 /100WBC
[2017-09-27 05:28] LABS: ANISOCYTOSIS 3+; LARGE PLATELETS FEW
[2017-09-27 05:32] VITALS: BP 116/68
[2017-09-27 08:02] VITALS: BP 114/75
[2017-09-27 08:56] VITALS: BP 107/72
[2017-09-27 16:59] VITALS: BP 103/66
[2017-09-27 20:00] VITALS: BP 108/74
[2017-09-28 04:00] VITALS: BP 144/93
[2017-09-28 04:05] LABS: HEMATOCRIT 23.8 % (42.0-52.0); HEMOGLOBIN 7.7 gm/dL (14.0-18.0); MCH 29.6 pg (26.0-34.0); MCHC 32.2 g/dL (28.0-37.0); MCV 91.9 fL (80.0-100.0); PLATELET COUNT 133 thou/uL (150-400); RBC 2.59 mil/uL (4.50-6.00); WBC 18.3 thou/uL (4.0-11.0)
[2017-09-28 04:25] LABS: CALCIUM 7.7 mg/dL (8.5-10.1); CREATININE 0.8 mg/dL (0.7-1.3); POTASSIUM 3.2 mmol/L (3.5-5.1)
[2017-09-28 06:14] LABS: ABSOLUTE NEUTROPHILS 15.6 thou/uL (1.4-8.2)
[2017-09-28 06:15] LABS: ANISOCYTOSIS 2+; POLYCHROMASIA 2+
[2017-09-28 07:05] VITALS: BP 130/91
[2017-09-28 15:50] VITALS: BP 137/87
[2017-09-28 20:00] VITALS: BP 122/80
[2017-09-29 01:09] LABS: ADENOVIRUS Negative (Negative); INFLUENZA A Negative (Negative); INFLUENZA B Negative (Negative); METAPNEUMOVIRUS Negative (Negative); PARAINFLUENZA 1 Negative (Negative); PARAINFLUENZA 2 Negative (Negative); PARAINFLUENZA 3 Negative (Negative); RHINOVIRUS Negative (Negative); RSV A Negative (Negative); RSV B Negative (Negative)
[2017-09-29 04:25] VITALS: BP 109/72
[2017-09-29] MEDS ORDERED: CEFDINIR300 MG PO (10:37)
[2017-09-29] MEDS ORDERED: OSELB75 PO (10:39)
[2017-09-29] MEDS ORDERED: PREDNISONE 10 M10 MG PO (10:42)
[2017-09-29 10:48] VITALS: BP 140/82
== END 2017-09-29 11:23 | disposition home or self-care (01) | DRG 871 ==
LOC: ER 13:10 → 4E 14:28 → EROBS 14:28 → 4E 15:58 → ENTRNSPT 09-29 10:55 → EDTRNSPTSTS 09-29 10:57 → 4E 09-29 11:23
PROVIDERS: Emergency Medicine; Hospitalist; Internal Medicine; Internal Medicine Hematology & Oncology; Nurse Practitioner; Specialist
DX: A41.9 Sepsis, unspecified organism (principal); J18.9 Pneumonia, unspecified organism; G93.40 Encephalopathy, unspecified; F10.239 Alcohol dependence with withdrawal, unspecified; J44.0 Chronic obstructive pulmonary disease with (acute) lower respiratory infection; N17.9 Acute kidney failure, unspecified; C34.90 Malignant neoplasm of unspecified part of unspecified bronchus or lung; M54.9 Dorsalgia, unspecified; G89.29 Other chronic pain; F17.210 Nicotine dependence, cigarettes, uncomplicated; D69.6 Thrombocytopenia, unspecified; G31.84 Mild cognitive impairment of uncertain or unknown etiology; Z79.899 Other long term (current) drug therapy; Z88.8 Allergy status to other drugs, medicaments and biological substances
CPT/HCPCS: 10183

== ENCOUNTER → 2017-10-09 | Outpatient (CLI) | payer OTHER ==
[~2017-10-09] MED LIST changes: +CEFDINIR300 MG PO; +GYNE-LOTRIMIN-745 GM VG; +OSELB75 PO; +POTASSIUM20 PO; +VOLTAREN GEL 1100 G2 TOP
== END ==
LOC: ULTRA 08:58
DX: M79.605 Pain in left leg (principal); M79.89 Other specified soft tissue disorders; C34.91 Malignant neoplasm of unspecified part of right bronchus or lung; C79.31 Secondary malignant neoplasm of brain